=== PATIENT | female | born 1935 | race Caucasian/White ===

== ENCOUNTER 2016-08-19 15:02 | Outpatient (RCR) | payer MEDICARE ==
[~2016-08-19 15:02] MED LIST: ALDACTONE PO; AMLOPIDINE PO; ASPIRIN E.C. 8181 MG PO; CALCITRIOL PO; COLACE100 M1 PO; COUMADIN 22.5 MG/TAB PO; COUMADIN PO; FEROSUL325 M1 PO; LASIX 40MG TABL40 MG PO; METFORMIN PO; MIRALAX17 GM PO; NATURE'S BLEND500 M6 PO; POTASSIUM CHLO20 ME4 PO; PRAVACHOL 40MG40 MG PO; PROAIR RESPICL90 MCG IH; Patient's Own Medica PO; SYNTHROID112 MCG PO; VITAMIN C PUR1000 MG PO
== END 2016-11-17 | disposition home or self-care (01) ==
LOC: CARDREHAB 15:02
DX: Z48.812 Encounter for surgical aftercare following surgery on the circulatory system (principal); Z95.2 Presence of prosthetic heart valve

== ENCOUNTER 2016-11-18 08:00 | Outpatient (RCR) | payer MEDICARE ==
[2016-04-16 06:20] VITALS: BP 115/57
== END 2017-02-16 | disposition home or self-care (01) ==
LOC: CARDREHAB
DX: Z48.812 Encounter for surgical aftercare following surgery on the circulatory system (principal); Z95.2 Presence of prosthetic heart valve; Z79.52 Long term (current) use of systemic steroids

== ENCOUNTER 2017-02-17 08:00 | Outpatient (RCR) | payer MEDICARE ==
[2016-04-16 06:20] VITALS: BP 115/57
== END 2017-05-18 | disposition home or self-care (01) ==
LOC: CARDREHAB
DX: Z48.812 Encounter for surgical aftercare following surgery on the circulatory system (principal)

== ENCOUNTER 2017-05-19 09:00 | Outpatient (RCR) | payer MEDICARE ==
[2017-05-23] MEDS ORDERED: LEVOFLOXACIN500 M1 PO (11:07)
[2017-05-23] MEDS ORDERED: CALCITRIOL0.25 MCG PO (11:08)
[2017-05-23] MEDS ORDERED: LASIX40 M1 PO (11:09)
[2017-05-23] MEDS ORDERED: BISOPROLOL FM5 MG PO (11:09)
[2017-05-23] MEDS ORDERED: ATORVASTATIN CA10 MG PO (11:11)
[2017-06-03] MEDS ORDERED: TUMS ULTRA ST1000 MG PO (11:08)
[2017-06-30 11:32] VITALS: BP 148/70
== END 2017-08-19 | disposition home or self-care (01) ==
LOC: CARDREHAB
DX: Z48.812 Encounter for surgical aftercare following surgery on the circulatory system (principal); Z95.5 Presence of coronary angioplasty implant and graft

== ENCOUNTER 2017-05-22 10:04 | Outpatient (RCR) | payer MEDICARE ==
[~2017-05-22] VITALS: Ht 154.9 cm; Wt 70.9 kg
[2017-05-22 12:35] VITALS: BP 141/55
[2017-05-22 13:11] VITALS: BP 142/59
[2017-05-23 11:06] VITALS: BP 144/61
[2017-05-23] MEDS ORDERED: LEVOFLOXACIN500 M1 PO (11:07)
[2017-05-23] MEDS ORDERED: CALCITRIOL0.25 MCG PO (11:08)
[2017-05-23] MEDS ORDERED: BISOPROLOL FM5 MG PO (11:09)
[2017-05-23] MEDS ORDERED: LASIX40 M1 PO (11:09)
[2017-05-23] MEDS ORDERED: ATORVASTATIN CA10 MG PO (11:11)
[2017-05-23 11:47] VITALS: BP 140/56
[2017-05-24 11:02] VITALS: BP 151/65
[2017-05-24 12:11] VITALS: BP 145/63
[2017-05-25 11:05] VITALS: BP 143/56
[2017-05-25 12:14] VITALS: BP 140/56
[2017-05-26 11:30] VITALS: BP 146/64
[2017-05-26 12:30] VITALS: BP 148/59
[2017-05-27 11:25] VITALS: BP 126/51
[2017-05-27 11:46] VITALS: BP 132/49
[2017-05-28 09:00] VITALS: BP 160/59
[2017-05-28 09:40] VITALS: BP 135/52
[2017-05-29 11:23] VITALS: BP 122/48
[2017-05-29 11:53] VITALS: BP 131/54
[2017-05-30 11:17] VITALS: BP 125/60
[2017-05-30 11:49] VITALS: BP 127/51
[2017-05-31 11:00] VITALS: BP 122/61
[2017-05-31 11:43] VITALS: BP 130/50
[2017-06-01 11:16] VITALS: BP 112/53
[2017-06-01 11:54] VITALS: BP 138/58
[2017-06-02 11:25] VITALS: BP 130/55
[2017-06-02 11:45] VITALS: BP 138/62
[2017-06-03] MEDS ORDERED: TUMS ULTRA ST1000 MG PO (11:08)
[2017-06-03 11:14] VITALS: BP 125/61
[2017-06-03 11:48] VITALS: BP 118/59
[2017-06-04 11:13] VITALS: BP 137/57
[2017-06-05 11:03] VITALS: BP 143/66
[2017-06-05 11:33] VITALS: BP 150/70
[2017-06-06 11:09] VITALS: BP 136/61
[2017-06-07 10:58] VITALS: BP 135/66
[2017-06-07 11:41] VITALS: BP 130/56
[2017-06-08 11:00] VITALS: BP 156/68
[2017-06-08 11:45] VITALS: BP 165/68
[2017-06-09 11:38] VITALS: BP 157/65
[2017-06-09 11:46] VITALS: BP 137/65
[2017-06-10 10:58] VITALS: BP 147/61
[2017-06-11 11:29] VITALS: BP 134/70
[2017-06-12 11:08] VITALS: BP 152/68
[2017-06-12 11:38] VITALS: BP 138/54
[2017-06-13 11:05] VITALS: BP 145/69
[2017-06-14 11:11] VITALS: BP 159/66
[2017-06-15 11:00] VITALS: BP 138/69
[2017-06-15 11:35] VITALS: BP 155/69
[2017-06-16 09:11] VITALS: BP 151/60
[2017-06-16 10:15] VITALS: BP 137/51
[2017-06-17 11:05] VITALS: BP 135/60
[2017-06-17 11:44] VITALS: BP 131/55
[2017-06-18 09:05] VITALS: BP 142/55
[2017-06-18 09:50] VITALS: BP 149/59
[2017-06-19 11:25] VITALS: BP 159/68
[2017-06-19 11:53] VITALS: BP 147/66
[2017-06-20 11:27] VITALS: BP 144/66
[2017-06-20 12:00] VITALS: BP 148/64
[2017-06-21 10:56] VITALS: BP 159/63
[2017-06-21 11:32] VITALS: BP 142/66
[2017-06-22 11:00] VITALS: BP 147/68
[2017-06-22 11:40] VITALS: BP 133/64
[2017-06-23 11:33] VITALS: BP 153/65
[2017-06-24 11:00] VITALS: BP 144/71
[2017-06-24 11:36] VITALS: BP 137/61
[2017-06-25 10:56] VITALS: BP 146/60
[2017-06-25 11:34] VITALS: BP 151/64
[2017-06-26 11:11] VITALS: BP 137/54
[2017-06-26 11:45] VITALS: BP 135/63
[2017-06-27 11:11] VITALS: BP 117/73
[2017-06-27 11:46] VITALS: BP 162/72
[2017-06-28 11:47] VITALS: BP 130/91; BP 157/66
[2017-06-29 10:56] VITALS: BP 156/75
[2017-06-29 11:34] VITALS: BP 140/66
[2017-06-30 11:16] VITALS: BP 152/71
[2017-06-30 11:32] VITALS: BP 148/70
== END 2017-08-20 | disposition home or self-care (01) ==
LOC: AMSURD
DX: I33.0 Acute and subacute infective endocarditis (principal); B95.4 Other streptococcus as the cause of diseases classified elsewhere; Z45.2 Encounter for adjustment and management of vascular access device
CPT/HCPCS: J0696; J1580; J1644

== ENCOUNTER → 2017-05-24 | Outpatient (CLI) | payer MEDICARE ==
[2017-05-23 11:47] VITALS: BP 140/56
[~2017-05-24] MED LIST changes: +ATORVASTATIN CA10 MG PO; +BISOPROLOL FM5 MG PO; +CALCITRIOL0.25 MCG PO; +LASIX40 M1 PO; +LEVOFLOXACIN500 M1 PO; +TUMS ULTRA ST1000 MG PO
== END ==
LOC: LAB 10:58
DX: R78.81 Bacteremia (principal); A49.1 Streptococcal infection, unspecified site

== ENCOUNTER → 2017-05-27 | Outpatient (CLI) | payer MEDICARE ==
[2017-05-26 12:30] VITALS: BP 148/59
== END ==
LOC: LAB 11:09
DX: A49.1 Streptococcal infection, unspecified site (principal)

== ENCOUNTER → 2017-05-30 | Outpatient (CLI) | payer MEDICARE ==
[2017-05-30 11:17] VITALS: BP 125/60
== END ==
LOC: LAB 11:29
DX: A49.1 Streptococcal infection, unspecified site (principal)

== ENCOUNTER → 2017-05-31 | Outpatient (CLI) | payer MEDICARE ==
[2017-05-31 11:43] VITALS: BP 130/50
== END ==
LOC: LAB 11:55
DX: A49.1 Streptococcal infection, unspecified site (principal)

== ENCOUNTER → 2017-06-02 | Outpatient (CLI) | payer MEDICARE ==
[2017-06-01 11:54] VITALS: BP 138/58
== END ==
LOC: LAB 11:08
DX: Z51.81 Encounter for therapeutic drug level monitoring (principal); Z79.2 Long term (current) use of antibiotics; B95.4 Other streptococcus as the cause of diseases classified elsewhere

== ENCOUNTER → 2017-06-14 | Outpatient (CLI) | payer MEDICARE ==
[2017-06-14 11:11] VITALS: BP 159/66
== END ==
LOC: LAB 11:12
DX: A49.1 Streptococcal infection, unspecified site (principal)

== ENCOUNTER → 2017-06-21 | Outpatient (CLI) | payer MEDICARE ==
[2017-06-21 10:56] VITALS: BP 159/63
== END ==
LOC: LAB 11:23
DX: A49.1 Streptococcal infection, unspecified site (principal)

== ENCOUNTER → 2017-06-28 | Outpatient (CLI) | payer MEDICARE ==
[2017-06-28 11:47] VITALS: BP 157/66
== END ==
LOC: LAB 12:54
DX: A49.1 Streptococcal infection, unspecified site (principal)

== ENCOUNTER 2019-03-16 14:00 | Outpatient (RCR) | payer MEDICARE | END 2019-03-16 14:30 | disposition still patient (30) | LOC: PT 14:00 | DX: M54.32 Sciatica, left side (principal) ==

== ENCOUNTER → 2019-08-08 | Outpatient (CLI) | payer MEDICARE | LOC: RAD 09:47 | DX: Z13.820 Encounter for screening for osteoporosis (principal); E89.2 Postprocedural hypoparathyroidism ==

== ENCOUNTER 2024-01-22 11:41 | Emergency (ER) | payer MEDICARE ==
[~2024-01-22] VITALS: Ht 154.9 cm; Wt 62.2 kg
[~2024-01-22 11:41] MED LIST changes: +B-121000 MCG PO; -BISOPROLOL FM5 MG PO; +BISOPROLOL FUMA10 M1 PO; +CORDARONE200 MG/TAB PO; +LASIX20 M1 PO; +LOW DOSE ASPIRI81 M1 PO; +WARFARIN SODIUM3 MG PO; +ZESTRIL20 M1 PO; +ZESTRIL5 M1 PO
[2024-01-22] MEDS ORDERED: TIROSINT75 MC1 PO (11:52)
[2024-01-22] MEDS ORDERED: GLUCOPHAGE PO (11:53)
[2024-01-22 12:43] LABS: BASO # 0.01 K/mm3 (0.02-0.10); EOS % 3.8 % (1.0-5.0); HEMATOCRIT 37.9 % (37.0-47.0); LYMPH# 0.85 K/mm3 (1.50-4.00); MEAN CELL VOLUME 92 fl (78-100); MEAN CORPUSCULAR HEMOGLOBIN 29 pg (27-31); MEAN CORPUSCULAR HGB CONC 32 g/dL (33-37); MEAN PLATELET VOLUME 11.8 fl (7.4-10.4); MONO # 0.46 K/mm3 (0.20-0.80); NEU # 3.67 K/mm3 (1.40-6.50); PLATELET COUNT 179 K/mm3 (130-400); RED CELL DISTRIBUTION WIDTH 16.9 % (11.5-14.5); WHITE BLOOD COUNT 5.2 K/mm3 (4.8-10.8)
[2024-01-22 12:51] LABS: ALBUMIN 4.1 g/dL (3.4-4.8)
[2024-01-22 12:53] LABS: CALCIUM 11.4 mg/dL (8.3-10.5)
[2024-01-22 12:56] LABS: TOTAL BILIRUBIN 0.6 mg/dL (0.2-1.2)
[2024-01-22 13:17] LABS: URINE APPEARANCE CLEAR (CLEAR); URINE COLOR LIGHT YELLOW (YELLOW)
[2024-01-22 13:25] LABS: URINE BILIRUBIN NEGATIVE (NEGATIVE); URINE BLOOD NEGATIVE (NEGATIVE); URINE GLUCOSE NEGATIVE (NEGATIVE); URINE KETONE NEGATIVE (NEGATIVE); URINE LEUKOCYTE ESTERASE 1+ (NEGATIVE); URINE NITRATE NEGATIVE (NEGATIVE); URINE PROTEIN(semi-quant) NEGATIVE (NEGATIVE)
[2024-01-22] MEDS ORDERED: POTASSIUM CHLO10 ME7 PO (13:43)
[2024-01-22] MEDS ORDERED: CEPHALEXIN500 M1 PO (13:43)
[2024-01-22] MEDS ORDERED: cefTRIAXone 1 G in Water For Injection,Sterile 10 ML IV ONE (13:45)
[2024-01-22 14:44] VITALS: BP 174/78
== END 2024-01-22 13:55 | disposition home or self-care (01) ==
LOC: ED 11:41
PROVIDERS: Family Medicine
DX: N39.0 Urinary tract infection, site not specified (principal); E87.6 Hypokalemia; I48.91 Unspecified atrial fibrillation; Z79.01 Long term (current) use of anticoagulants
CPT/HCPCS: J0696

== ENCOUNTER → 2024-03-14 | Outpatient (CLI) | payer MEDICARE ==
[~2024-03-14] MED LIST changes: +CEPHALEXIN500 M1 PO; +GLUCOPHAGE PO; +POTASSIUM CHLO10 ME7 PO; +TIROSINT75 MC1 PO
[2024-03-14 10:36] LABS: URINE APPEARANCE CLOUDY (CLEAR); URINE BILIRUBIN NEGATIVE (NEGATIVE); URINE BLOOD NEGATIVE (NEGATIVE); URINE COLOR YELLOW (YELLOW); URINE GLUCOSE NEGATIVE (NEGATIVE); URINE KETONE NEGATIVE (NEGATIVE); URINE LEUKOCYTE ESTERASE 1+ (NEGATIVE); URINE NITRATE NEGATIVE (NEGATIVE); URINE PROTEIN(semi-quant) NEGATIVE (NEGATIVE); URINE WBC 16-30 /hpf (0-3)
== END ==
LOC: LAB 09:54
PROVIDERS: Family Medicine
DX: R30.0 Dysuria (principal)

== ENCOUNTER 2024-03-15 19:34 | Emergency (ER) | payer MEDICARE | END 2024-03-15 22:30 | disposition home or self-care (01) | LOC: ED 19:34 | DX: M25.552 Pain in left hip (principal); M54.50 Low back pain, unspecified; R07.81 Pleurodynia; W19.XXXA Unspecified fall, initial encounter ==

== ENCOUNTER → 2024-03-22 | Outpatient (CLI) | payer MEDICARE ==
[2024-05-14 12:18] LABS: PH-URINE 6.5 (5.0 - 8.0); URINE APPEARANCE CLEAR (CLEAR); URINE BILIRUBIN NEGATIVE (NEGATIVE); URINE BLOOD NEGATIVE (NEGATIVE); URINE COLOR YELLOW (YELLOW); URINE GLUCOSE NEGATIVE (NEGATIVE); URINE KETONE NEGATIVE (NEGATIVE); URINE LEUKOCYTE ESTERASE TRACE (NEGATIVE); URINE NITRATE NEGATIVE (NEGATIVE); URINE PROTEIN(semi-quant) 2+ (NEGATIVE)
[2024-05-14 12:19] LABS: URINE MUCUS PRESENT (NOT PRESENT)
== END ==
LOC: LAB 08:00
PROVIDERS: Family Medicine
DX: N39.0 Urinary tract infection, site not specified (principal)

== ENCOUNTER → 2024-03-24 | Outpatient (CLI) | payer MEDICARE ==
[2024-05-15 12:03] LABS: CALCIUM 9.9 mg/dL (8.3-10.5)
[2024-05-15 12:15] LABS: BASO # 0.03 K/mm3 (0.02-0.10); EOS # 0.13 K/mm3 (0.04-0.40); EOS % 2.7 % (1.0-5.0); HEMOGLOBIN 10.7 g/dL (12.5-16.0); LYMPH# 0.74 K/mm3 (1.50-4.00); MEAN CELL VOLUME 97 fl (78-100); MEAN CORPUSCULAR HEMOGLOBIN 31 pg (27-31); MEAN CORPUSCULAR HGB CONC 32 g/dL (33-37); MEAN PLATELET VOLUME 12.1 fl (7.4-10.4); NEU # 3.59 K/mm3 (1.40-6.50); PLATELET COUNT 211 K/mm3 (130-400); RED CELL DISTRIBUTION WIDTH 15.2 % (11.5-14.5); WHITE BLOOD COUNT 4.9 K/mm3 (4.8-10.8)
== END ==
LOC: LAB 12:02 → EDSTATUS 19:18
PROVIDERS: Family Medicine
DX: R53.1 Weakness (principal)

== ENCOUNTER 2024-06-18 10:07 | Emergency (ER) | payer MEDICARE ==
[~2024-06-18] VITALS: Ht 154.9 cm; Wt 64.9 kg
[2024-06-18 11:41] LABS: BASO # 0.02 K/mm3 (0.02-0.10); HEMATOCRIT 35.3 % (37.0-47.0); HEMOGLOBIN 10.9 g/dL (12.5-16.0); LYMPH# 0.72 K/mm3 (1.50-4.00); MEAN CELL VOLUME 93 fl (78-100); MEAN CORPUSCULAR HEMOGLOBIN 29 pg (27-31); MEAN CORPUSCULAR HGB CONC 31 g/dL (33-37); MEAN PLATELET VOLUME 12.9 fl (7.4-10.4); NEU # 3.58 K/mm3 (1.40-6.50); PLATELET COUNT 213 K/mm3 (130-400); RED BLOOD COUNT 3.79 M/mm3 (4.10-5.30); RED CELL DISTRIBUTION WIDTH 15.3 % (11.5-14.5); WHITE BLOOD COUNT 4.9 K/mm3 (4.8-10.8)
[2024-06-18 11:43] LABS: ALBUMIN 3.7 g/dL (3.4-4.8)
[2024-06-18 11:45] LABS: CALCIUM 8.8 mg/dL (8.3-10.5)
[2024-06-18 11:46] LABS: TOTAL PROTEIN 7.6 g/dL (6.2-8.1)
[2024-06-18 11:53] LABS: RSV RAPID MOLECULAR IN HOUSE NEGATIVE (NEGATIVE)
[2024-06-18] MEDS ORDERED: Furosemide 40 MG TAB PO ONE (12:15)
[2024-06-18] MEDS ORDERED: LASIX40 M1 PO (12:20)
[2024-06-18 12:33] VITALS: BP 134/69
== END 2024-06-18 12:42 | disposition home or self-care (01) ==
LOC: ED 10:07
PROVIDERS: Physician Assistant
DX: N18.9 Chronic kidney disease, unspecified (principal); N17.9 Acute kidney failure, unspecified; I50.9 Heart failure, unspecified; B34.9 Viral infection, unspecified; R05.9 Cough, unspecified

== ENCOUNTER 2024-07-04 17:19 | Emergency (ER) | payer MEDICARE ==
[~2024-07-04] VITALS: Ht 154.9 cm; Wt 62.2 kg
[2024-07-04] MEDS ORDERED: Amiodarone 150 MG/3 ML VIAL IV ONE (17:45)
[2024-07-04 17:55] LABS: BASO # 0.02 K/mm3 (0.02-0.10); EOS # 0.06 K/mm3 (0.04-0.40); HEMATOCRIT 36.6 % (37.0-47.0); HEMOGLOBIN 11.4 g/dL (12.5-16.0); MEAN CELL VOLUME 92 fl (78-100); MEAN CORPUSCULAR HEMOGLOBIN 29 pg (27-31); MEAN CORPUSCULAR HGB CONC 31 g/dL (33-37); MEAN PLATELET VOLUME 12.7 fl (7.4-10.4); MONO # 0.53 K/mm3 (0.20-0.80); NEU # 4.31 K/mm3 (1.40-6.50); PLATELET COUNT 211 K/mm3 (130-400); RED BLOOD COUNT 3.99 M/mm3 (4.10-5.30); RED CELL DISTRIBUTION WIDTH 15.8 % (11.5-14.5); WHITE BLOOD COUNT 5.8 K/mm3 (4.8-10.8)
[2024-07-04 19:10] VITALS: BP 105/78
[2024-07-04 20:04] LABS: ALBUMIN 3.5 g/dL (3.4-4.8); CALCIUM 9.1 mg/dL (8.3-10.5); MAGNESIUM 2.3 mg/dL (1.60-2.60); TOTAL BILIRUBIN 0.9 mg/dL (0.2-1.2); TOTAL PROTEIN 7.7 g/dL (6.2-8.1)
== END 2024-07-04 19:10 | disposition short-term general hospital (02) ==
LOC: ED 17:19
PROVIDERS: Physician Assistant
DX: I50.9 Heart failure, unspecified (principal); I48.91 Unspecified atrial fibrillation; R53.83 Other fatigue; R53.1 Weakness
CPT/HCPCS: J0282

== ENCOUNTER 2024-07-10 17:10 | Inpatient (IN) | payer MEDICARE ==
[~2024-07-10] VITALS: Ht 154.9 cm; Wt 57.8 kg
[2024-07-11] MEDS ORDERED: ACETAMINOPHEN325 M1 PO (14:00)
[2024-07-11] MEDS ORDERED: COLACE100 M1 PO (14:01)
[2024-07-11] MEDS ORDERED: AZO D-MANNOSE500 MG PO (14:01)
[2024-07-11] MEDS ORDERED: CALCITRIOL0.25 MCG PO (14:01)
[2024-07-11] MEDS ORDERED: LEVOTHYROXIN0.075 MG PO (14:02)
[2024-07-11] MEDS ORDERED: VITAMIN B12 1541 TAB PO (14:03)
[2024-07-11 14:30] VITALS: BP 113/68
[2024-07-11] MEDS ORDERED: Bisacodyl 5 MG TAB PO PRN (14:30)
[2024-07-11] MEDS ORDERED: Polyethylene Glycol 3350 Powder 17 GM PACKET PO PRN (14:30)
[2024-07-11] MEDS ORDERED: Famotidine 20 MG TAB PO PRN (14:45)
[2024-07-11] MEDS ORDERED: Acetaminophen 325 MG TAB PO PRN (15:00)
[2024-07-11] MEDS ORDERED: Docusate Sodium 100 MG CAP PO PRN (15:00)
[2024-07-11 15:39] LABS: ALBUMIN 2.7 g/dL (3.4-4.8)
[2024-07-11 15:40] LABS: CALCIUM 9.6 mg/dL (8.3-10.5)
[2024-07-11 15:41] LABS: TOTAL PROTEIN 6.2 g/dL (6.2-8.1)
[2024-07-11 15:43] LABS: TOTAL BILIRUBIN 1.3 mg/dL (0.2-1.2)
[2024-07-11 15:44] LABS: BASO # 0.03 K/mm3 (0.02-0.10); EOS # 0.15 K/mm3 (0.04-0.40); EOS % 1.8 % (1.0-5.0); LYMPH# 0.88 K/mm3 (1.50-4.00); MEAN CELL VOLUME 93 fl (78-100); MEAN CORPUSCULAR HEMOGLOBIN 28 pg (27-31); MEAN CORPUSCULAR HGB CONC 30 g/dL (33-37); MEAN PLATELET VOLUME 13.2 fl (7.4-10.4); MONO # 1.02 K/mm3 (0.20-0.80); NEU # 6.26 K/mm3 (1.40-6.50); RED CELL DISTRIBUTION WIDTH 16.7 % (11.5-14.5); WHITE BLOOD COUNT 8.4 K/mm3 (4.8-10.8)
[2024-07-11 16:09] LABS: PLATELET COUNT 123 K/mm3 (130-400); RED BLOOD COUNT 3.55 M/mm3 (4.10-5.30)
[2024-07-11 17:59] VITALS: BP 118/72
[2024-07-12 06:31] LABS: URINE APPEARANCE CLOUDY (CLEAR); URINE COLOR YELLOW (YELLOW)
[2024-07-12 06:32] VITALS: BP 131/78
[2024-07-12 06:32] LABS: URINE BILIRUBIN NEGATIVE (NEGATIVE); URINE BLOOD 2+ (NEGATIVE); URINE GLUCOSE NEGATIVE (NEGATIVE); URINE KETONE NEGATIVE (NEGATIVE); URINE LEUKOCYTE ESTERASE 3+ (NEGATIVE); URINE MUCUS PRESENT (NOT PRESENT); URINE NITRATE NEGATIVE (NEGATIVE); URINE PROTEIN(semi-quant) 2+ (NEGATIVE); URINE WBC >50 /hpf (0-3)
[2024-07-12 07:25] LABS: BASO # 0.03 K/mm3 (0.02-0.10); EOS # 0.06 K/mm3 (0.04-0.40); EOS % 0.7 % (1.0-5.0); HEMATOCRIT 33.8 % (37.0-47.0); HEMOGLOBIN 10.3 g/dL (12.5-16.0); LYMPH# 0.67 K/mm3 (1.50-4.00); MEAN CELL VOLUME 93 fl (78-100); MEAN CORPUSCULAR HEMOGLOBIN 28 pg (27-31); MEAN CORPUSCULAR HGB CONC 31 g/dL (33-37); MONO # 0.98 K/mm3 (0.20-0.80); NEU # 6.23 K/mm3 (1.40-6.50); RED CELL DISTRIBUTION WIDTH 16.9 % (11.5-14.5)
[2024-07-12 07:33] LABS: ALBUMIN 2.9 g/dL (3.4-4.8)
[2024-07-12 07:35] LABS: CALCIUM 9.6 mg/dL (8.3-10.5)
[2024-07-12 07:36] LABS: TOTAL PROTEIN 6.3 g/dL (6.2-8.1)
[2024-07-12 07:38] LABS: TOTAL BILIRUBIN 1.6 mg/dL (0.2-1.2)
[2024-07-12 08:00] LABS: PLATELET COUNT 105 K/mm3 (130-400); RED BLOOD COUNT 3.64 M/mm3 (4.10-5.30)
[2024-07-12] MEDS ORDERED: cefTRIAXone 1 G in Water For Injection,Sterile 10 ML IV SCH ×2 (08:30→13:15)
[2024-07-12] MEDS ORDERED: Amoxicillin/Clavulanate K+ 875/125 MG TAB PO SCH (08:31)
[2024-07-12] MEDS ORDERED: Bumetanide 1 MG TAB PO SCH (09:00)
[2024-07-12] MEDS ORDERED: Calcitriol 0.25 MCG CAP PO SCH (09:00)
[2024-07-12] MEDS ORDERED: D MANNOSE 500 MG PO SCH (09:00)
[2024-07-12] MEDS ORDERED: Amoxicillin/Clavulanate K+ 500/125 MG TAB PO SCH (09:30)
[2024-07-12 17:53] VITALS: BP 149/79
[2024-07-13 06:07] VITALS: BP 144/71
[2024-07-13 17:33] VITALS: BP 133/67
[2024-07-14 05:34] VITALS: BP 119/57
[2024-07-14 08:32] LABS: HEMATOCRIT 33.9 % (37.0-47.0); HEMOGLOBIN 10.1 g/dL (12.5-16.0); MEAN CELL VOLUME 94 fl (78-100); MEAN CORPUSCULAR HEMOGLOBIN 28 pg (27-31); MEAN CORPUSCULAR HGB CONC 30 g/dL (33-37); MEAN PLATELET VOLUME 13.8 fl (7.4-10.4); PLATELET COUNT 173 K/mm3 (130-400); RED BLOOD COUNT 3.59 M/mm3 (4.10-5.30); RED CELL DISTRIBUTION WIDTH 17.1 % (11.5-14.5); WHITE BLOOD COUNT 8.6 K/mm3 (4.8-10.8)
[2024-07-14 08:37] LABS: CALCIUM 10.1 mg/dL (8.3-10.5)
[2024-07-14 08:38] LABS: TOTAL PROTEIN 6.4 g/dL (6.2-8.1)
[2024-07-14 08:40] LABS: TOTAL BILIRUBIN 1.1 mg/dL (0.2-1.2)
[2024-07-14 09:12] LABS: LYMPHOCYTE 5 % (20-51); MONOCYTE 4 % (3-10); NEUTROPHILS 90 % (42-75)
[2024-07-14 09:13] LABS: POLYCHROMASIA 1+
[2024-07-14 09:14] LABS: OVALOCYTES 1+
[2024-07-14 18:00] VITALS: BP 146/67
[2024-07-15 06:11] VITALS: BP 161/73
[2024-07-15 18:02] VITALS: BP 151/75
[2024-07-16 06:21] VITALS: BP 126/62
[2024-07-16] MEDS ORDERED: MAGNESIUM HYDROXIDE PO PRN (14:00)
[2024-07-16 18:07] VITALS: BP 149/68
[2024-07-16 18:13] VITALS: BP 146/67
[2024-07-17 06:13] VITALS: BP 159/66
[2024-07-17 16:59] VITALS: BP 139/67
[2024-07-18 05:52] VITALS: BP 144/67
[2024-07-18 18:00] VITALS: BP 145/64
[2024-07-19 05:48] VITALS: BP 123/69
[2024-07-19 06:10] LABS: BASO # 0.04 K/mm3 (0.02-0.10); EOS # 0.17 K/mm3 (0.04-0.40); EOS % 2.5 % (1.0-5.0); HEMATOCRIT 30.2 % (37.0-47.0); HEMOGLOBIN 9.2 g/dL (12.5-16.0); LYMPH# 1.15 K/mm3 (1.50-4.00); MEAN CELL VOLUME 93 fl (78-100); MEAN CORPUSCULAR HEMOGLOBIN 28 pg (27-31); MEAN CORPUSCULAR HGB CONC 31 g/dL (33-37); MEAN PLATELET VOLUME 12.7 fl (7.4-10.4); MONO # 0.73 K/mm3 (0.20-0.80); NEU # 4.76 K/mm3 (1.40-6.50); PLATELET COUNT 172 K/mm3 (130-400); RED BLOOD COUNT 3.24 M/mm3 (4.10-5.30); RED CELL DISTRIBUTION WIDTH 17.5 % (11.5-14.5); WHITE BLOOD COUNT 6.9 K/mm3 (4.8-10.8)
[2024-07-19] MEDS ORDERED: Bisoprolol 5 MG TAB PO SCH (09:00)
[2024-07-19 17:43] VITALS: BP 136/65
[2024-07-20 05:35] VITALS: BP 156/68
[2024-07-20 17:09] VITALS: BP 145/69
[2024-07-21 05:11] VITALS: BP 134/59
[2024-07-21 07:05] LABS: ALBUMIN 3.1 g/dL (3.4-4.8)
[2024-07-21 07:07] LABS: CALCIUM 11.5 mg/dL (8.3-10.5)
[2024-07-21 07:08] LABS: TOTAL PROTEIN 6.9 g/dL (6.2-8.1)
[2024-07-21 07:10] LABS: TOTAL BILIRUBIN 1.1 mg/dL (0.2-1.2)
[2024-07-21 07:37] LABS: BASO # 0.05 K/mm3 (0.02-0.10); EOS # 0.24 K/mm3 (0.04-0.40); EOS % 3.2 % (1.0-5.0); HEMATOCRIT 31.8 % (37.0-47.0); HEMOGLOBIN 9.6 g/dL (12.5-16.0); LYMPH# 1.13 K/mm3 (1.50-4.00); MEAN CELL VOLUME 94 fl (78-100); MEAN CORPUSCULAR HEMOGLOBIN 28 pg (27-31); MEAN CORPUSCULAR HGB CONC 30 g/dL (33-37); MEAN PLATELET VOLUME 13.6 fl (7.4-10.4); NEU # 5.34 K/mm3 (1.40-6.50); PLATELET COUNT 197 K/mm3 (130-400); RED CELL DISTRIBUTION WIDTH 17.6 % (11.5-14.5); WHITE BLOOD COUNT 7.6 K/mm3 (4.8-10.8)
[2024-07-21 17:06] VITALS: BP 150/75
[2024-07-22 06:06] VITALS: BP 145/58
[2024-07-22 17:07] VITALS: BP 117/60
[2024-07-23 05:59] VITALS: BP 117/73
[2024-07-23 11:56] LABS: BASO # 0.04 K/mm3 (0.02-0.10); EOS # 0.14 K/mm3 (0.04-0.40); EOS % 2.4 % (1.0-5.0); HEMATOCRIT 33.5 % (37.0-47.0); HEMOGLOBIN 9.9 g/dL (12.5-16.0); LYMPH# 0.83 K/mm3 (1.50-4.00); MEAN CELL VOLUME 97 fl (78-100); MEAN CORPUSCULAR HEMOGLOBIN 29 pg (27-31); MEAN CORPUSCULAR HGB CONC 30 g/dL (33-37); MEAN PLATELET VOLUME 11.9 fl (7.4-10.4); MONO # 0.46 K/mm3 (0.20-0.80); NEU # 4.25 K/mm3 (1.40-6.50); PLATELET COUNT 242 K/mm3 (130-400); RED BLOOD COUNT 3.46 M/mm3 (4.10-5.30); RED CELL DISTRIBUTION WIDTH 18.3 % (11.5-14.5); WHITE BLOOD COUNT 5.7 K/mm3 (4.8-10.8)
[2024-07-23 12:04] LABS: ALBUMIN 3.3 g/dL (3.4-4.8)
[2024-07-23 12:05] LABS: CALCIUM 11.7 mg/dL (8.3-10.5)
[2024-07-23 12:07] LABS: TOTAL PROTEIN 7.4 g/dL (6.2-8.1)
[2024-07-23] MEDS ORDERED: 1/2 NS 1,000 ML IV SCH (13:30)
[2024-07-23 17:39] VITALS: BP 140/61
[2024-07-24 05:05] VITALS: BP 156/69
[2024-07-24 05:58] LABS: CALCIUM 10.9 mg/dL (8.3-10.5)
[2024-07-24 08:31] LABS: MAGNESIUM 2.08 mg/dL (1.60-2.60)
[2024-07-24] MEDS ORDERED: Bisoprolol 5 MG TAB PO SCH (09:00)
[2024-07-24 17:12] VITALS: BP 146/71
[2024-07-25 05:24] VITALS: BP 172/67
[2024-07-25 14:28] LABS: PH-URINE 8.5 (5.0 - 8.0); URINE APPEARANCE SLIGHTLY CLOUDY (CLEAR); URINE COLOR YELLOW (YELLOW); URINE GLUCOSE NEGATIVE (NEGATIVE); URINE KETONE NEGATIVE (NEGATIVE); URINE PROTEIN(semi-quant) 1+ (NEGATIVE)
[2024-07-25 14:29] LABS: URINE BILIRUBIN NEGATIVE (NEGATIVE); URINE BLOOD NEGATIVE (NEGATIVE); URINE LEUKOCYTE ESTERASE 1+ (NEGATIVE); URINE NITRATE NEGATIVE (NEGATIVE)
[2024-07-25 17:04] VITALS: BP 168/70
[2024-07-26 05:41] VITALS: BP 162/70
[2024-07-26 06:04] LABS: HEMATOCRIT 34.3 % (37.0-47.0); HEMOGLOBIN 10.5 g/dL (12.5-16.0); MEAN CELL VOLUME 95 fl (78-100); MEAN CORPUSCULAR HEMOGLOBIN 29 pg (27-31); MEAN CORPUSCULAR HGB CONC 31 g/dL (33-37); MEAN PLATELET VOLUME 12.9 fl (7.4-10.4); PLATELET COUNT 233 K/mm3 (130-400); WHITE BLOOD COUNT 8.9 K/mm3 (4.8-10.8)
[2024-07-26 06:12] LABS: ALBUMIN 3.3 g/dL (3.4-4.8)
[2024-07-26 06:15] LABS: TOTAL PROTEIN 7.4 g/dL (6.2-8.1)
[2024-07-26 06:17] LABS: TOTAL BILIRUBIN 1.7 mg/dL (0.2-1.2)
[2024-07-26 06:40] LABS: LYMPHOCYTE 4 % (20-51); MONOCYTE 3 % (3-10); NEUTROPHILS 93 % (42-75)
[2024-07-26 17:28] VITALS: BP 137/67
[2024-07-27 05:58] VITALS: BP 171/69
[2024-07-27 08:03] LABS: HEMATOCRIT 33.4 % (37.0-47.0); MEAN CELL VOLUME 98 fl (78-100); MEAN CORPUSCULAR HEMOGLOBIN 29 pg (27-31); MEAN CORPUSCULAR HGB CONC 30 g/dL (33-37); MEAN PLATELET VOLUME 12.9 fl (7.4-10.4); PLATELET COUNT 263 K/mm3 (130-400); RED BLOOD COUNT 3.42 M/mm3 (4.10-5.30); RED CELL DISTRIBUTION WIDTH 18.9 % (11.5-14.5); WHITE BLOOD COUNT 7.7 K/mm3 (4.8-10.8)
[2024-07-27] MEDS ORDERED: 1/2 NS & 20 mEq KCl 1,000 ML IV SCH (08:15)
[2024-07-27 08:16] LABS: ALBUMIN 3.4 g/dL (3.4-4.8)
[2024-07-27 08:19] LABS: TOTAL PROTEIN 7.8 g/dL (6.2-8.1)
[2024-07-27 08:20] LABS: TOTAL BILIRUBIN 1.6 mg/dL (0.2-1.2)
[2024-07-27 08:26] LABS: CALCIUM 12.7 mg/dL (8.3-10.5)
[2024-07-27 09:26] LABS: LYMPHOCYTE 7 % (20-51); MONOCYTE 8 % (3-10); NEUTROPHILS 85 % (42-75)
[2024-07-27] MEDS ORDERED: hydrALAZINE 20 MG/ML 1 ML VIAL IV PRN (10:15)
[2024-07-27 11:53] LABS: TROPONIN-I 0.044 ng/mL (0.00-0.033)
[2024-07-27 13:30] VITALS: BP 151/65
[2024-07-27 13:47] LABS: CALCIUM 11.8 mg/dL (8.3-10.5)
[2024-07-27 14:02] LABS: TROPONIN-I 0.047 ng/mL (0.00-0.033)
[2024-07-27] MEDS ORDERED: D5 1/4 NS 1,000 ML IV SCH (14:15)
[2024-07-27 18:03] VITALS: BP 169/73
[2024-07-27 18:33] LABS: BASO # 0.03 K/mm3 (0.02-0.10); EOS # 0.13 K/mm3 (0.04-0.40); EOS % 2.2 % (1.0-5.0); HEMATOCRIT 31.6 % (37.0-47.0); HEMOGLOBIN 9.5 g/dL (12.5-16.0); LYMPH# 0.62 K/mm3 (1.50-4.00); MEAN CELL VOLUME 96 fl (78-100); MEAN CORPUSCULAR HEMOGLOBIN 29 pg (27-31); MEAN CORPUSCULAR HGB CONC 30 g/dL (33-37); MEAN PLATELET VOLUME 13.1 fl (7.4-10.4); MONO # 0.43 K/mm3 (0.20-0.80); PLATELET COUNT 245 K/mm3 (130-400); RED CELL DISTRIBUTION WIDTH 19.2 % (11.5-14.5)
[2024-07-27 18:41] LABS: CALCIUM 11.4 mg/dL (8.3-10.5)
[2024-07-27 19:00] LABS: TROPONIN-I 0.044 ng/mL (0.00-0.033)
[2024-07-27 19:10] VITALS: BP 102/52
[2024-07-27] MEDS ORDERED: D5 1/2 NS & 20mEq KCl 1,000 ML IV SCH (19:15)
[2024-07-27 20:02] VITALS: BP 102/52
[2024-07-27 23:21] VITALS: BP 137/68
[2024-07-28 03:17] VITALS: BP 172/70
[2024-07-28 07:16] LABS: HEMATOCRIT 32.8 % (37.0-47.0); HEMOGLOBIN 9.7 g/dL (12.5-16.0); MEAN CELL VOLUME 98 fl (78-100); MEAN CORPUSCULAR HEMOGLOBIN 29 pg (27-31); MEAN CORPUSCULAR HGB CONC 30 g/dL (33-37); MEAN PLATELET VOLUME 13.1 fl (7.4-10.4); PLATELET COUNT 249 K/mm3 (130-400); RED BLOOD COUNT 3.34 M/mm3 (4.10-5.30); RED CELL DISTRIBUTION WIDTH 19.3 % (11.5-14.5); WHITE BLOOD COUNT 5.7 K/mm3 (4.8-10.8)
[2024-07-28 07:19] LABS: ALBUMIN 3.1 g/dL (3.4-4.8)
[2024-07-28 07:20] LABS: CALCIUM 11.2 mg/dL (8.3-10.5)
[2024-07-28 07:21] LABS: TOTAL PROTEIN 7.1 g/dL (6.2-8.1)
[2024-07-28 07:23] LABS: TOTAL BILIRUBIN 1.5 mg/dL (0.2-1.2)
[2024-07-28 07:54] VITALS: BP 165/68
[2024-07-28 08:34] LABS: LYMPHOCYTE 10 % (20-51); MONOCYTE 5 % (3-10); NEUTROPHILS 83 % (42-75)
[2024-07-28 08:35] LABS: HYPOCHROMIA 1+; MICROCYTOSIS 1+
[2024-07-28] MEDS ORDERED: D5W 1,000 ML IV SCH (09:00)
[2024-07-28] MEDS ORDERED: Heparin 5,000 UNITS/ML 1 ML VIAL SQ SCH (09:00)
[2024-07-28] MEDS ORDERED: Potassium Chloride 100 ML IV SCH (09:00)
[2024-07-28 10:56] VITALS: BP 177/80
== END 2024-07-28 13:43 | disposition home or self-care (01) | DRG 291 ==
LOC: MED/SURG 07-11 12:17
PROVIDERS: ADMIT Family Medicine
DX: I13.0 Hypertensive heart and chronic kidney disease with heart failure and stage 1 through stage 4 chronic kidney disease, or unspecified chronic kidney disease (principal); I50.33 Acute on chronic diastolic (congestive) heart failure; N17.9 Acute kidney failure, unspecified; N39.0 Urinary tract infection, site not specified; D63.1 Anemia in chronic kidney disease; N18.30 Chronic kidney disease, stage 3 unspecified; E11.22 Type 2 diabetes mellitus with diabetic chronic kidney disease; I48.0 Paroxysmal atrial fibrillation; I25.10 Atherosclerotic heart disease of native coronary artery without angina pectoris; Z66 Do not resuscitate; E03.9 Hypothyroidism, unspecified; L89.152 Pressure ulcer of sacral region, stage 2; R74.01 Elevation of levels of liver transaminase levels; Z79.890 Hormone replacement therapy; R53.81 Other malaise; Z95.2 Presence of prosthetic heart valve; Z86.73 Personal history of transient ischemic attack (TIA), and cerebral infarction without residual deficits; Z95.0 Presence of cardiac pacemaker
CPT/HCPCS: A6240; J0360; J0696; J1644; J1650; J3480; J7070

== ENCOUNTER 2024-07-28 12:10 | Inpatient (IN) | payer MEDICARE ==
[~2024-07-28] VITALS: Ht 154.9 cm; Wt 57.8 kg
[~2024-07-28 12:10] MED LIST changes: +ACETAMINOPHEN325 M1 PO; +AZO D-MANNOSE500 MG PO; +LEVOTHYROXIN0.075 MG PO; +VITAMIN B12 1541 TAB PO
[2024-07-28] MEDS ORDERED: Ondansetron 4 MG/2 ML VIAL IV PRN (12:45)
[2024-07-28] MEDS ORDERED: D5W 1,000 ML IV SCH (13:00)
[2024-07-28] MEDS ORDERED: hydrALAZINE 20 MG/ML 1 ML VIAL IV PRN (13:00)
[2024-07-28 15:13] VITALS: BP 162/78
[2024-07-28 15:44] LABS: CALCIUM 10.3 mg/dL (8.3-10.5)
[2024-07-28] MEDS ORDERED: cefTRIAXone 1 G in Water For Injection,Sterile 10 ML IV SCH (16:00)
[2024-07-28] MEDS ORDERED: D5 1/2 NS & 20mEq KCl 1,000 ML IV SCH (16:45)
[2024-07-28 19:51] VITALS: BP 113/55
[2024-07-28] MEDS ORDERED: Heparin 5,000 UNITS/ML 1 ML VIAL SQ SCH (21:00)
[2024-07-28 23:34] VITALS: BP 118/63
[2024-07-29] VITALS (8 sets, daily range): BP systolic 122–180; BP diastolic 65–84
--- NOTE | 2024-07-29 03:57 | NUR ---
PT BP AT 0300 WAS 180/84 AND WAS MEDICATED WITH PRN HYDRALAZYNE 10MG PER MAR, PTS BP WAS RECHECKED AFTER 30 MINS. PT BP CAME DOWN TO 137/71. PT VS ARE WNL.
[2024-07-29 07:30] LABS: BASO # 0.03 K/mm3 (0.02-0.10); EOS # 0.23 K/mm3 (0.04-0.40); EOS % 4.4 % (1.0-5.0); HEMATOCRIT 32.3 % (37.0-47.0); HEMOGLOBIN 9.9 g/dL (12.5-16.0); LYMPH# 0.61 K/mm3 (1.50-4.00); MEAN CELL VOLUME 96 fl (78-100); MEAN CORPUSCULAR HEMOGLOBIN 30 pg (27-31); MEAN CORPUSCULAR HGB CONC 31 g/dL (33-37); MEAN PLATELET VOLUME 13.3 fl (7.4-10.4); MONO # 0.52 K/mm3 (0.20-0.80); NEU # 3.81 K/mm3 (1.40-6.50); PLATELET COUNT 237 K/mm3 (130-400); RED BLOOD COUNT 3.36 M/mm3 (4.10-5.30); RED CELL DISTRIBUTION WIDTH 18.9 % (11.5-14.5); WHITE BLOOD COUNT 5.2 K/mm3 (4.8-10.8)
[2024-07-29 07:40] LABS: ALBUMIN 3.1 g/dL (3.4-4.8)
[2024-07-29 07:41] LABS: CALCIUM 10.3 mg/dL (8.3-10.5)
[2024-07-29 07:43] LABS: TOTAL PROTEIN 7.3 g/dL (6.2-8.1)
[2024-07-29 07:44] LABS: TOTAL BILIRUBIN 1.2 mg/dL (0.2-1.2)
--- NOTE | 2024-07-29 07:48 | NUR ---
harvey No notified this RN of swelling to l hand and rings cutting into skin. Pt reports that she doesnt want her rings taken off. This RN wraps hand with misael bandage and elevates hand at this time. This RN explains potential complications if swelling doesnt reduce and rings are not removed.
--- NOTE | 2024-07-29 08:30 | NUR ---
CHATA WRAP AND BOARD REMOVED FROM LUE ELBOW AREA. CHATA BANDAGE REOMOVED FROM HAND. EXTREMITY ELEVATED.
--- NOTE | 2024-07-29 08:50 | NUR ---
Pt sitting in bed. Noted wetness under patient, changed brief and chux, cleaned patient. Pt denies any pain currently. Call light within reach. Pt has a visiter sitting in recliner at this time.
--- NOTE | 2024-07-29 16:41 | NUR ---
PT SLEEPING WHEN THIS RN ENTERS THE ROOM. PT AWAKENS AND THEN BECOMES DROWSY. ASKED IF PATIENT IS COLD AND WANTS COVERED UP, RESPONDS YES. PT TUCKED IN. PT ENCOURAGED AGAIN TO NOT REMOVE MONITORING EQUIPMENT.
--- NOTE | 2024-07-29 18:03 | NUR ---
ERP AT BEDSIDE WITH PATIENT.
--- NOTE | 2024-07-29 18:32 | NUR ---
Pt sitting up in bed watching the Dream[employer] game with her at bedside.
--- NOTE | 2024-07-29 18:47 | NUR ---
REPORT TO JAMESON SANZ.
--- NOTE | 2024-07-29 19:17 | NUR ---
Report received from Mignon BARBA. Patient resting supine in bed. was in visiting and left for the evening. Patient restless and fiddling with TELE wires and taking off hospital gown. Continuous pulse ox in place. Alert to Self, first name only. Denies pain. Assessment completed. L hand swollen some, L heel boggy, attempt to elevate on pillow but patient not cooperative with leaving in place. Assessment completed. HS supplement provided and assisted by staff. Bed alarm on. Call light in reach.
--- NOTE | 2024-07-29 22:44 | NUR ---
B/P 177/72. IV hydralazine given by JAMESON.
--- NOTE | 2024-07-29 23:12 | NUR ---
Blood pressure recheck 122/67
[2024-07-30] VITALS (8 sets, daily range): BP systolic 126–175; BP diastolic 43–73
--- NOTE | 2024-07-30 03:18 | NUR ---
B/P 175/73. RN notified to give hydralazine. Repositioned. Awake, quiet, confused.
--- NOTE | 2024-07-30 04:04 | NUR ---
B/P 126/43 after hydralazine. Awake, taking off gown.
--- NOTE | 2024-07-30 05:45 | NUR ---
Remains awake but restless. Pulling at O2 sensor wire. PO Levothyroxine taken in applesauce. Drank 120 CC of mild thickened water with encouragement. Repositoned. New purwick. Had 400 ML of urinary output.
--- NOTE | 2024-07-30 06:38 | NUR ---
Report to Karlie BARBA.
--- NOTE | 2024-07-30 19:15 | NUR ---
Report received from Karlie RN. Patient rests supine in bed with eyes closed. Awakens briefly with verbal stimuli from this nurse but promptly goes back to sleep. Voice soft spoken with confused speech. Does not follow commands well due to lethargy. Assessment completed. TELE in place with SAO2 at 98% via continuous pulse ox. Staff in to reposition Q 2 hours with incont cares as needed. Bed alarm on. Call light in reach.
--- NOTE | 2024-07-30 19:49 | NUR ---
Daughter Keena in to visit, updated on patient condition, questions answered.
--- NOTE | 2024-07-30 19:55 | NUR ---
B/P 164. RN's notified of need for hydralazine IV.
--- NOTE | 2024-07-30 20:38 | NUR ---
Repeat B/P 131/60.
--- NOTE | 2024-07-30 21:40 | NUR ---
Repositioned with oral cares provided. Brief dry. Opens eyes on command but then closes. Follows commands with oral cares ie swishes water and spits out into basin. Tried providing drink of water but holds in her mouth then spit it out. Heels floated on pillow. Bed alarm on. Call light in reach.
[2024-07-31 03:42] VITALS: BP 129/56
--- NOTE | 2024-07-31 05:52 | NUR ---
Remains lethargic but reponsive to staff. Takes po Synthroid in applesauce and mild thick water. No choking or couging noted. Repositioned, incontinent of urine x2 this shift.
--- NOTE | 2024-07-31 06:55 | NUR ---
Report to Kirsty BARBA.
[2024-07-31 08:30] VITALS: BP 174/68
--- NOTE | 2024-07-31 11:55 | NUR ---
PATIENT RESTING IN BED UPON ENTERING ROOM. PATIENT OPENS EYES WHEN NAME IS CALLED THEN GOES RIGHT BACK SLEEP. SHE ONLY SAID "MARTINE" AND FOR HER BIRTHDAY SHE STATED "10[birth year] THEN FELL BACK ASLEEP. SHE WAS ABLE TO SQUEEZE HANDS WHEN ASKED, BUT DID IT WITH EYES CLOSED. SHE HAS AN IV PLACED IN HER RIGHT AC AND FLUSHED WITHOUT ISSUE. PATIENT'S HEELS WHERE SOFT, SO FEET ARE ELEVATED. PATIENT NOT AWAKE OR ALERT ENOUGH FOR ORAL MED THIS AM. STAFF WILL CONTINUE TO REPOSITION PATIENT ORDERED AND NEEDED, PROVIDE ORAL CARE AND EVELYN CARE NEEDED. STAFF WILL CONT TO MONITOR.
[2024-07-31 12:01] VITALS: BP 171/73
[2024-07-31] MEDS ORDERED: Morphine Oral Concentrate 20 MG/ML UD PO PRN (14:30)
[2024-07-31] MEDS ORDERED: Ondansetron 4 MG/2 ML VIAL IV PRN (14:30)
[2024-07-31] MEDS ORDERED: LORazepam 2 MG/ML VIAL IV PRN (14:30)
[2024-07-31] MEDS ORDERED: Scopolamine 1 MG Delivered 3-Day PATCH TD PRN (14:30)
--- NOTE | 2024-07-31 14:52 | NUR ---
Spoke with [facility]. They will accept Anisha back on Hospice. Spoke with Family. Yina daughter would like Anisha to stay here. Nadir is DPOA and would like her to be well taken care of. He initally wanted her to go back to [facility] near him. but now is in agreement to stay here with comfort care.
--- NOTE | 2024-07-31 14:58 | NUR ---
Marin Britton has been Contacted.
--- NOTE | 2024-07-31 17:13 | NUR ---
PATIENT IS NOW ON COMFORT CARE. TELE HAS BEEN REMOVED. IV STILL IN PLACE. PATIENT WANTED TO WALK. STAFF ASSISTED PATIENT AND SHE AMBULATED ABOUT 150FT WITH WALKER. FAMILY HAS BEEN WITH PATIENT MOST OF THE DAY.
--- NOTE | 2024-07-31 19:04 | NUR ---
RECEIVED REPORT FROM JAMESON GIRARD
--- NOTE | 2024-07-31 23:08 | NUR ---
PATIENT RESTING IN BED. SHE TAKES GOWN OFF CONSISANTLY, ROOM KEPT WARM. DOES NOT APPEAR TO HAVE PAIN OR DISCOMFORT. BED ALARM ON . CALL LIGHT IN REACH
--- NOTE | 2024-08-01 14:44 | NUR ---
PATIENT HAS BEEN IN BED WITH EYES CLOSED FOR THE MAJORITY OF THE MORNING. SHE DID EAT SOME BREAKFAST, BUT REFUSED LUNCH. HAS BEEN IN WITH HER MOST OF THE DAY. PATIENT WILL OPEN EYES WHEN NAME IS SAID. PATIENT WANTED TO GET UP EARLY AFTERNOON. SHE WENT TO RESTROOM, DRESSING ON COCCYX WAS CHANGED. PATIENT UP IN HER RECLINER WITH IN ROOM WITH HER. ORAL AND EVELYN CARE PERFORMED Q2HRS AND NEEDED. PATIENT IS REPOSITIONED EVERY 2HRS.
[2024-08-01] MEDS ORDERED: LORazepam 0.5 MG TABLET PO PRN (15:45)
--- NOTE | 2024-08-01 19:18 | NUR ---
Report received from Kirsty BARBA. Patient resting supine in bed with eyes closed. Opens eyes with verbal stimuli. No signs of pain or distress. Resting comfortably at this time. Bed alarm on. Call light in reach
--- NOTE | 2024-08-01 23:36 | NUR ---
Rests quietly with eyes closed. Respirations even and non-labored. No signs of pain/distress.
--- NOTE | 2024-08-02 05:28 | NUR ---
Rested well most of the shift. Did take off gown and pull out purewick this AM. Responds to verbal stimuli but keeps eyes closed. Staff in to provide cares and reposition for comfort.
--- NOTE | 2024-08-02 06:54 | NUR ---
Report to Mayur BARBA.
[2024-08-02 10:12] LABS: BASO # 0.03 K/mm3 (0.02-0.10); EOS # 0.07 K/mm3 (0.04-0.40); HEMATOCRIT 36.7 % (37.0-47.0); HEMOGLOBIN 10.8 g/dL (12.5-16.0); LYMPH# 0.78 K/mm3 (1.50-4.00); MEAN CELL VOLUME 97 fl (78-100); MEAN CORPUSCULAR HEMOGLOBIN 29 pg (27-31); MEAN CORPUSCULAR HGB CONC 29 g/dL (33-37); MEAN PLATELET VOLUME 12.8 fl (7.4-10.4); MONO # 0.55 K/mm3 (0.20-0.80); NEU # 5.59 K/mm3 (1.40-6.50); PLATELET COUNT 240 K/mm3 (130-400); RED BLOOD COUNT 3.77 M/mm3 (4.10-5.30); RED CELL DISTRIBUTION WIDTH 19.8 % (11.5-14.5); WHITE BLOOD COUNT 7.1 K/mm3 (4.8-10.8)
[2024-08-02 10:20] LABS: ALBUMIN 3.6 g/dL (3.4-4.8)
[2024-08-02 10:22] LABS: CALCIUM 10.8 mg/dL (8.3-10.5)
[2024-08-02 10:23] LABS: TOTAL PROTEIN 8.2 g/dL (6.2-8.1)
[2024-08-02 10:25] LABS: TOTAL BILIRUBIN 1.4 mg/dL (0.2-1.2)
--- NOTE | 2024-08-02 10:40 | NUR ---
NOTIFIED MILTON ROY OF CRITICAL CHLORIDE OF 126.
--- NOTE | 2024-08-02 17:15 | NUR ---
PT IS SITTING UP IN RECLINER. STAFF ANESTHETIST IS HELPING PATIENT WITH EATING. PT DENIES ANY NEEDS AT THIS TIME.
--- NOTE | 2024-08-02 18:36 | NUR ---
PTS DAUGHTER STAYED WITH PT FOR THE MAJORITY OF THE DAY. PT WENT OUTSIDE WITH AND VISITED HER DOG. PT HAS BEEN ALERT FOR THE WHOLE SHIFT. GAVE REPORT TO JAMESON SANZ.
--- NOTE | 2024-08-02 19:04 | NUR ---
Report received from Mayur RN. Patient rests supine in bed. Arouses and opens eyes briefly with verbal stimuli but promptly falls back to sleep. Denies pain when asked. No signs of pain/distress. Assessment completed. Continue on comfort care. Bed alarm on. Call light in reach.
--- NOTE | 2024-08-03 01:49 | NUR ---
Rests quietly, No signs of pain or distress. Repositoned for comfort.
--- NOTE | 2024-08-03 06:07 | NUR ---
Continues to rest comfortably. No urinary output this shift. Still reponsive to tactile and verbal stimuli. No signs of pain or distress.
--- NOTE | 2024-08-03 07:13 | NUR ---
Report to Fiorella BARBA.
--- NOTE | 2024-08-03 19:25 | NUR ---
Report received from Fiorella BARBA. Patient resting in recliner. Drowsy, responds to verbal stimuli. Denies pain when asked, Shows no signs of pain. Ambulated with 2:1 staff to BR. Voids dark yellow urine and passes large amount of gas. HUMAN RESOURCES HR REPRESENTATIVE gave bed-bath and assisted with HS cares. Patient brushed own teeth with set up and cueing. Ambulated back to bed. Positioned for comfort on L side. Falls asleep promptly. Assessment completed. Bed alarm on, call light in reach.
--- NOTE | 2024-08-04 05:16 | NUR ---
Status unchanged, Repositioned Q 2 hours. Ambulated with staff assist x2 to the BR to void. Remains on comfort cares. No signs of pain or distress. Bed alarm on. Call light in reach.
--- NOTE | 2024-08-04 07:06 | NUR ---
Report to Susana Walton RN
--- NOTE | 2024-08-04 09:12 | NUR ---
PT RESTING IN BED. PT IS AROUSABLE TO STIMULI BUT RESPONDS MINIMALLY. DOES NOT APPEAR TO BE IN ANY PAIN. WHEN ASKED IF SHE NEEDED ANYTHING SHE RESPONDED "NO".
--- NOTE | 2024-08-05 10:34 | NUR ---
PT RESTING WITH FAMILY AT BEDSIDE. PT RESPONSIVE BUT LETHARGIC.
--- NOTE | 2024-08-05 19:03 | NUR ---
REPORT GIVEN TO MADDY, RN
--- NOTE | 2024-08-06 08:17 | NUR ---
PT RESTING IN BED WITH 3 SIDE RAILS UP AND BED ALARM ON. PT IS LETHARGIC BUT RESPONSIVE. RESPONDS TO TOUCH AND WHEN ASKED IF SHE WANTED ANYTHING TO EAT FOR BREAKFAST SHE STATED "NO". DENIES PAIN, APPEARS TO BE RESTING COMFORTABLY.
--- NOTE | 2024-08-06 17:51 | NUR ---
PT BECOMING RESTLESS, TAKING OFF CLOTHES AND PULLING OFF COVERS. PT WAS ALSO HALLUCINATING BELIEVING TO SEE A FIRE OUTSIDE HER WINDOW. 0.5 MG ATIVAN ADMINISTERED.
--- NOTE | 2024-08-06 18:37 | NUR ---
REPORT GIVEN TO RYLAN SANZ
--- NOTE | 2024-08-06 19:00 | NUR ---
Report received from Susana BARBA. Patient resting on L side in bed. Drowsy but arouses to verbal stimuli. here and leaves for the evening. Shows no signs of pain. Staff in to repositon and provide cares Q2 hours and PRN. Assessment completed. Bed alarm on, call light in reach.
--- NOTE | 2024-08-06 23:54 | NUR ---
Awake and up to BR with assist. Staff states patient grimacing when getting legs OOB. Patient shakes head yes when asked if in pain. Roxanol given SL at this time.
--- NOTE | 2024-08-07 02:31 | NUR ---
Resting comfortably. Respirations even and non-labored, no signs of pain/distress.
--- NOTE | 2024-08-07 06:04 | NUR ---
Continues to rest quietly. Staff in to reposition and provide cares.
--- NOTE | 2024-08-07 06:58 | NUR ---
Report to Kirsty BARBA.
[2024-08-07] MEDS ORDERED: MORPHINE S100 MG/5 M PO (10:20)
[2024-08-07 10:48] VITALS: BP 171/73
--- NOTE | 2024-08-07 11:19 | NUR ---
PATIENT REMAINS ON COMFORT CARE. SHE IS SLEEPING BUT WILL OPEN EYE WHEN NAME IS SAID. SHE HAS BEEN RESTING IN BED COMFORTABLY. HAS BEEN IN AND OUT SEVERAL TIMES THIS SHIFT. HE WILL BE DRIVING THE PATIENT TO HOSPICE FACILITY. PATIENT IS ABLE TO AMBULATE WITH WALKER WITH ASSISTANCE. SHE DOES NOT APPEAR TO BE IN PAIN OR UNCOMFORTABLE. STAFF WILL ASSIST GATHERING UP CLOTHING AND PERSONAL BELINGINGS. DAUGHTER IS ALSO HERE TO HELP. PATIENT IS SCHEDULED TO BE DISCHARGED AROUND 1300.
== END 2024-08-07 12:55 | disposition hospice, inpatient (51) | DRG 948 ==
LOC: MED/SURG 12:10
PROVIDERS: Family Medicine; ADMIT Family Medicine
DX: R53.81 Other malaise (principal); I50.32 Chronic diastolic (congestive) heart failure; I13.0 Hypertensive heart and chronic kidney disease with heart failure and stage 1 through stage 4 chronic kidney disease, or unspecified chronic kidney disease; N39.0 Urinary tract infection, site not specified; N17.9 Acute kidney failure, unspecified; N18.30 Chronic kidney disease, stage 3 unspecified; I48.0 Paroxysmal atrial fibrillation; L89.152 Pressure ulcer of sacral region, stage 2; Z51.5 Encounter for palliative care; Z66 Do not resuscitate; E11.22 Type 2 diabetes mellitus with diabetic chronic kidney disease; E03.9 Hypothyroidism, unspecified; E87.6 Hypokalemia; D63.1 Anemia in chronic kidney disease; R41.82 Altered mental status, unspecified; R74.01 Elevation of levels of liver transaminase levels; E86.0 Dehydration; Z79.890 Hormone replacement therapy; Z95.0 Presence of cardiac pacemaker; Z95.2 Presence of prosthetic heart valve; Z86.73 Personal history of transient ischemic attack (TIA), and cerebral infarction without residual deficits; Z88.8 Allergy status to other drugs, medicaments and biological substances
CPT/HCPCS: J0360; J0696; J1644; J3480; J7070

== ENCOUNTER → 2024-08-13 | Outpatient (REF) | payer MEDICARE ==
[~2024-08-13] MED LIST changes: +MORPHINE S100 MG/5 M PO
[2024-08-13 14:53] LABS: URINE APPEARANCE CLOUDY (CLEAR); URINE COLOR YELLOW (YELLOW); URINE GLUCOSE NEGATIVE (NEGATIVE); URINE KETONE TRACE (NEGATIVE); URINE PROTEIN(semi-quant) 1+ (NEGATIVE)
[2024-08-13 14:54] LABS: URINE BILIRUBIN 1+ (NEGATIVE); URINE BLOOD NEGATIVE (NEGATIVE); URINE LEUKOCYTE ESTERASE 1+ (NEGATIVE); URINE NITRATE NEGATIVE (NEGATIVE); URINE WBC 16-30 /hpf (0-3)
== END ==
LOC: LAB 14:20
PROVIDERS: Family Medicine
DX: R45.1 Restlessness and agitation (principal); R41.82 Altered mental status, unspecified

== ENCOUNTER 2024-08-31 14:11 | Emergency (ER) | payer MEDICARE ==
[~2024-08-31] VITALS: Ht 154.9 cm; Wt 58.8 kg
[2024-08-31 14:15] VITALS: BP 136/64
== END 2024-08-31 16:05 | disposition home or self-care (01) ==
LOC: ED 14:11
DX: M25.511 Pain in right shoulder (principal); M25.512 Pain in left shoulder; M25.552 Pain in left hip; R29.6 Repeated falls; Z51.5 Encounter for palliative care

== ENCOUNTER → 2024-09-29 | Outpatient (REF) | payer MEDICARE ==
[2024-09-29 17:06] LABS: URINE APPEARANCE CLEAR (CLEAR); URINE BILIRUBIN NEGATIVE (NEGATIVE); URINE BLOOD NEGATIVE (NEGATIVE); URINE COLOR YELLOW (YELLOW); URINE GLUCOSE NEGATIVE (NEGATIVE); URINE KETONE NEGATIVE (NEGATIVE); URINE LEUKOCYTE ESTERASE NEGATIVE (NEGATIVE); URINE NITRATE NEGATIVE (NEGATIVE); URINE PROTEIN(semi-quant) NEGATIVE (NEGATIVE)
[2024-09-29 17:07] LABS: URINE WBC 0-1 /hpf (0-3)
== END ==
LOC: LAB 15:59
PROVIDERS: Family Medicine
DX: N39.0 Urinary tract infection, site not specified (principal)

== ENCOUNTER → 2024-10-02 | Outpatient (REF) | payer MEDICARE ==
[2024-10-02 12:05] LABS: BASO # 0.04 K/mm3 (0.02-0.10); EOS # 0.27 K/mm3 (0.04-0.40); EOS % 4.4 % (1.0-5.0); HEMATOCRIT 26.2 % (37.0-47.0); HEMOGLOBIN 8.2 g/dL (12.5-16.0); LYMPH# 0.66 K/mm3 (1.50-4.00); MEAN CELL VOLUME 99 fl (78-100); MEAN CORPUSCULAR HEMOGLOBIN 31 pg (27-31); MEAN CORPUSCULAR HGB CONC 31 g/dL (33-37); MEAN PLATELET VOLUME 11.9 fl (7.4-10.4); MONO # 0.37 K/mm3 (0.20-0.80); NEU # 4.76 K/mm3 (1.40-6.50); PLATELET COUNT 133 K/mm3 (130-400); RED BLOOD COUNT 2.64 M/mm3 (4.10-5.30); RED CELL DISTRIBUTION WIDTH 19.8 % (11.5-14.5); WHITE BLOOD COUNT 6.1 K/mm3 (4.8-10.8)
[2024-10-02 12:13] LABS: ALBUMIN 2.9 g/dL (3.4-4.8)
[2024-10-02 12:15] LABS: TOTAL PROTEIN 6.9 g/dL (6.2-8.1)
[2024-10-02 12:17] LABS: TOTAL BILIRUBIN 0.4 mg/dL (0.2-1.2)
[2024-10-02 12:36] LABS: CALCIUM 5.4 mg/dL (8.3-10.5)
== END ==
LOC: LAB 11:56
PROVIDERS: Nurse Practitioner
DX: R29.6 Repeated falls (principal)

== ENCOUNTER → 2024-10-20 | Outpatient (REF) | payer MEDICARE ==
[~2024-10-20] MED LIST changes: +ATIVAN PO; +BISACODYL10 M1 RC; +CALCIUM 500-VI1 EAC1 PO; +CRANBERRY200 MG PO; +FUROSEMIDE40 MG; +LEVOTHYROXINE100 MC1 PO; +MACROBID 1100 MG/CAP PO; +MASON NATURAL325 MG PO; +MORPHINE S20 MG/5 M1 PO; +NYSTATIN15 G1 TP; +VITAMIN B122500 MC2 PO
[2024-10-20 19:28] LABS: URINE APPEARANCE CLEAR (CLEAR); URINE BILIRUBIN NEGATIVE (NEGATIVE); URINE BLOOD NEGATIVE (NEGATIVE); URINE COLOR YELLOW (YELLOW); URINE GLUCOSE NEGATIVE (NEGATIVE); URINE KETONE NEGATIVE (NEGATIVE); URINE LEUKOCYTE ESTERASE TRACE (NEGATIVE); URINE NITRATE NEGATIVE (NEGATIVE); URINE PROTEIN(semi-quant) NEGATIVE (NEGATIVE)
== END ==
LOC: LAB 18:00
PROVIDERS: Family Medicine
DX: N39.0 Urinary tract infection, site not specified (principal)

== ENCOUNTER 2024-10-22 18:52 | Emergency (ER) | payer MEDICARE ==
[~2024-10-22 18:52] MED LIST changes: -ATIVAN PO; -BISACODYL10 M1 RC; -CALCIUM 500-VI1 EAC1 PO; -CRANBERRY200 MG PO; -FUROSEMIDE40 MG; -LEVOTHYROXINE100 MC1 PO; -MACROBID 1100 MG/CAP PO; -MASON NATURAL325 MG PO; -MORPHINE S20 MG/5 M1 PO; -NYSTATIN15 G1 TP; -VITAMIN B122500 MC2 PO
[2024-10-22] MEDS ORDERED: CRANBERRY200 MG PO (19:14)
[2024-10-22] MEDS ORDERED: MASON NATURAL325 MG PO (19:16)
[2024-10-22] MEDS ORDERED: CALCIUM 500-VI1 EAC1 PO (19:16)
[2024-10-22] MEDS ORDERED: MACROBID 1100 MG/CAP PO (19:17)
[2024-10-22] MEDS ORDERED: FUROSEMIDE40 MG (19:17)
[2024-10-22] MEDS ORDERED: LEVOTHYROXINE100 MC1 PO (19:17)
[2024-10-22] MEDS ORDERED: VITAMIN B122500 MC2 PO (19:19)
[2024-10-22] MEDS ORDERED: ACETAMINOPHEN325 M1 PO (19:20)
[2024-10-22] MEDS ORDERED: BISACODYL10 M1 RC (19:21)
[2024-10-22] MEDS ORDERED: ATIVAN PO (19:23)
[2024-10-22] MEDS ORDERED: MORPHINE S20 MG/5 M1 PO (19:24)
[2024-10-22] MEDS ORDERED: NYSTATIN15 G1 TP (19:25)
[2024-10-22 19:38] LABS: BASO # 0.05 K/mm3 (0.02-0.10); EOS # 0.23 K/mm3 (0.04-0.40); HEMATOCRIT 27.6 % (37.0-47.0); HEMOGLOBIN 8.5 g/dL (12.5-16.0); LYMPH# 0.73 K/mm3 (1.50-4.00); MEAN CELL VOLUME 102 fl (78-100); MEAN CORPUSCULAR HEMOGLOBIN 32 pg (27-31); MEAN CORPUSCULAR HGB CONC 31 g/dL (33-37); MEAN PLATELET VOLUME 11.5 fl (7.4-10.4); MONO # 0.55 K/mm3 (0.20-0.80); NEU # 4.16 K/mm3 (1.40-6.50); PLATELET COUNT 170 K/mm3 (130-400); RED CELL DISTRIBUTION WIDTH 17.2 % (11.5-14.5); WHITE BLOOD COUNT 5.7 K/mm3 (4.8-10.8)
[2024-10-22 19:45] LABS: ALBUMIN 3.5 g/dL (3.4-4.8)
[2024-10-22 19:48] LABS: TOTAL PROTEIN 8.1 g/dL (6.2-8.1)
[2024-10-22 19:50] LABS: TOTAL BILIRUBIN 0.5 mg/dL (0.2-1.2)
[2024-10-22 19:55] LABS: MAGNESIUM 1.6 mg/dL (1.60-2.60)
[2024-10-22 20:23] LABS: CALCIUM 5.5 mg/dL (8.3-10.5)
[2024-10-22 20:51] VITALS: BP 113/58
== END 2024-10-22 20:52 | disposition home or self-care (01) ==
LOC: ED 18:52
PROVIDERS: Physician Assistant
DX: E83.51 Hypocalcemia (principal); N18.4 Chronic kidney disease, stage 4 (severe); D63.1 Anemia in chronic kidney disease; Z95.0 Presence of cardiac pacemaker; Z95.9 Presence of cardiac and vascular implant and graft, unspecified

== ENCOUNTER → 2024-11-17 | Outpatient (REF) | payer MEDICARE ==
[~2024-11-17] MED LIST changes: +ATIVAN PO; +BISACODYL10 M1 RC; +CALCIUM 500-VI1 EAC1 PO; +CRANBERRY200 MG PO; +FUROSEMIDE40 MG; +LEVOTHYROXINE100 MC1 PO; +MACROBID 1100 MG/CAP PO; +MASON NATURAL325 MG PO; +MORPHINE S20 MG/5 M1 PO; +NYSTATIN15 G1 TP; +VITAMIN B122500 MC2 PO
== END ==
LOC: LAB 12:52
DX: R39.9 Unspecified symptoms and signs involving the genitourinary system (principal)

== ENCOUNTER → 2024-11-23 | Outpatient (REF) | payer MEDICARE ==
[~2024-11-23] MED LIST changes: +MUCUS RELIEF600 MG PO; +SLOW RELEASE I142 M1 PO; +VITAMIN C500 M6 PO
== END ==
LOC: LAB 14:37
DX: E83.51 Hypocalcemia (principal)

== ENCOUNTER 2024-11-25 11:11 | Emergency (ER) | payer MEDICARE ==
[~2024-11-25] VITALS: Wt 61.5 kg
[~2024-11-25 11:11] MED LIST changes: -SLOW RELEASE I142 M1 PO; -VITAMIN C500 M6 PO
[2024-11-25 11:56] LABS: BASO # 0.03 K/mm3 (0.02-0.10); EOS # 0.07 K/mm3 (0.04-0.40); EOS % 0.8 % (1.0-5.0); HEMATOCRIT 36.3 % (37.0-47.0); HEMOGLOBIN 10.6 g/dL (12.5-16.0); LYMPH# 0.84 K/mm3 (1.50-4.00); MEAN CELL VOLUME 106 fl (78-100); MEAN CORPUSCULAR HEMOGLOBIN 31 pg (27-31); MEAN CORPUSCULAR HGB CONC 29 g/dL (33-37); MEAN PLATELET VOLUME 12.9 fl (7.4-10.4); MONO # 0.77 K/mm3 (0.20-0.80); NEU # 7.21 K/mm3 (1.40-6.50); PLATELET COUNT 249 K/mm3 (130-400); RED BLOOD COUNT 3.44 M/mm3 (4.10-5.30); RED CELL DISTRIBUTION WIDTH 15.7 % (11.5-14.5); WHITE BLOOD COUNT 8.9 K/mm3 (4.8-10.8)
[2024-11-25] MEDS ORDERED: NS 1,000 ML IV SCH (12:00)
[2024-11-25 12:02] LABS: ALBUMIN 3.3 g/dL (3.4-4.8)
[2024-11-25 12:04] LABS: CALCIUM 8.3 mg/dL (8.3-10.5)
[2024-11-25 12:05] LABS: TOTAL PROTEIN 7.8 g/dL (6.2-8.1)
[2024-11-25 12:12] LABS: RSV RAPID MOLECULAR IN HOUSE NEGATIVE (NEGATIVE)
[2024-11-25] MEDS ORDERED: 1/2 NS & 20 mEq KCl 1,000 ML IV SCH (12:30)
[2024-11-25] MEDS ORDERED: Albuterol/Ipratropium 3 MG-0.5 MG/3 ML Neb Soln IH ONE (14:30)
[2024-11-25] MEDS ORDERED: VITAMIN C500 M6 PO (14:43)
[2024-11-25] MEDS ORDERED: SLOW RELEASE I142 M1 PO (14:47)
[2024-11-25 15:30] VITALS: BP 102/71
== END 2024-11-25 14:55 | disposition other institution (70) ==
LOC: ED 11:11
PROVIDERS: Family Medicine
DX: J10.1 Influenza due to other identified influenza virus with other respiratory manifestations (principal); E87.0 Hyperosmolality and hypernatremia; E86.0 Dehydration; E87.6 Hypokalemia; Z95.0 Presence of cardiac pacemaker; Z98.61 Coronary angioplasty status; Z95.4 Presence of other heart-valve replacement
CPT/HCPCS: J3480

== ENCOUNTER 2024-11-25 14:32 | Inpatient (IN) | payer MEDICARE ==
[~2024-11-25] VITALS: Ht 157.5 cm; Wt 58.5 kg
[2024-11-25] MEDS ORDERED: VITAMIN C500 M6 PO (14:43)
[2024-11-25] MEDS ORDERED: SLOW RELEASE I142 M1 PO (14:47)
[2024-11-25 14:54] VITALS: BP 105/70
[2024-11-25] MEDS ORDERED: Albuterol/Ipratropium 3 MG-0.5 MG/3 ML Neb Soln IH PRN (15:15)
[2024-11-25] MEDS ORDERED: Acetaminophen 325 MG TAB PO PRN (15:15)
[2024-11-25] MEDS ORDERED: 1/2 NS 1,000 ML IV SCH (18:15)
[2024-11-25 18:28] VITALS: BP 114/78
[2024-11-25 23:10] LABS: CALCIUM 7.5 mg/dL (8.3-10.5)
[2024-11-26 05:01] LABS: URINE APPEARANCE CLOUDY (CLEAR); URINE COLOR YELLOW (YELLOW)
[2024-11-26 05:02] LABS: PH-URINE 5.5 (5.0 - 8.0); URINE BILIRUBIN 1+ (NEGATIVE); URINE BLOOD NEGATIVE (NEGATIVE); URINE GLUCOSE NEGATIVE (NEGATIVE); URINE KETONE 1+ (NEGATIVE); URINE LEUKOCYTE ESTERASE 1+ (NEGATIVE); URINE NITRATE NEGATIVE (NEGATIVE); URINE PROTEIN(semi-quant) 2+ (NEGATIVE); URINE WBC 31-50 /hpf (0-3)
[2024-11-26 05:04] LABS: URINE MUCUS PRESENT (NOT PRESENT)
[2024-11-26] MEDS ORDERED: cefTRIAXone 1 G in Water For Injection,Sterile 10 ML IV SCH (05:15)
[2024-11-26 06:00] VITALS: BP 128/86
[2024-11-26 07:44] VITALS: BP 98/65
[2024-11-26] MEDS ORDERED: Calcitriol 0.25 MCG CAP PO SCH (09:00)
[2024-11-26 09:44] LABS: BASO # 0.02 K/mm3 (0.02-0.10); EOS # 0.12 K/mm3 (0.04-0.40); EOS % 1.6 % (1.0-5.0); HEMATOCRIT 34.3 % (37.0-47.0); HEMOGLOBIN 10.1 g/dL (12.5-16.0); LYMPH# 0.62 K/mm3 (1.50-4.00); MEAN CELL VOLUME 104 fl (78-100); MEAN CORPUSCULAR HEMOGLOBIN 31 pg (27-31); MEAN CORPUSCULAR HGB CONC 29 g/dL (33-37); MEAN PLATELET VOLUME 12.4 fl (7.4-10.4); MONO # 0.49 K/mm3 (0.20-0.80); NEU # 6.37 K/mm3 (1.40-6.50); PLATELET COUNT 205 K/mm3 (130-400); RED BLOOD COUNT 3.29 M/mm3 (4.10-5.30); RED CELL DISTRIBUTION WIDTH 15.7 % (11.5-14.5); WHITE BLOOD COUNT 7.6 K/mm3 (4.8-10.8)
[2024-11-26 09:52] LABS: ALBUMIN 2.7 g/dL (3.4-4.8)
[2024-11-26 09:53] LABS: CALCIUM 7.2 mg/dL (8.3-10.5)
[2024-11-26 09:54] LABS: TOTAL PROTEIN 6.4 g/dL (6.2-8.1)
[2024-11-26 09:56] LABS: TOTAL BILIRUBIN 0.8 mg/dL (0.2-1.2)
[2024-11-26] MEDS ORDERED: Doxycycline Monohydrate 100 MG CAP PO SCH (10:23)
[2024-11-26] MEDS ORDERED: Bumetanide 1 MG/4 ML VIAL IV ONE (10:30)
[2024-11-26] MEDS ORDERED: 1/2 NS & 20 mEq KCl 1,000 ML IV SCH (10:30)
[2024-11-26 10:33] VITALS: BP 132/80
[2024-11-26 14:12] VITALS: BP 129/76
[2024-11-26 14:44] LABS: CALCIUM 7.5 mg/dL (8.3-10.5)
[2024-11-26 18:00] VITALS: BP 130/86
[2024-11-26] MEDS ORDERED: Bisoprolol 5 MG TAB PO SCH (18:02)
[2024-11-26 21:34] VITALS: BP 119/77
[2024-11-27 07:24] VITALS: BP 127/82
[2024-11-27 10:25] LABS: ALBUMIN 2.7 g/dL (3.4-4.8)
[2024-11-27 10:27] LABS: CALCIUM 7.2 mg/dL (8.3-10.5)
[2024-11-27 10:28] LABS: TOTAL PROTEIN 6.5 g/dL (6.2-8.1)
[2024-11-27 10:30] LABS: TOTAL BILIRUBIN 0.9 mg/dL (0.2-1.2)
[2024-11-27] MEDS ORDERED: Bumetanide 1 MG/4 ML VIAL IV ONE (10:45)
[2024-11-27] MEDS ORDERED: Albumin Human 50 ML IV ONE (11:15)
[2024-11-27] MEDS ORDERED: 1/2 NS & 20 mEq KCl 1,000 ML IV SCH (11:15)
[2024-11-27 11:34] VITALS: BP 128/76
[2024-11-27 14:19] VITALS: BP 123/56
[2024-11-27 17:14] LABS: CALCIUM 6.9 mg/dL (8.3-10.5)
[2024-11-27 19:15] VITALS: BP 119/70
[2024-11-27 23:51] VITALS: BP 105/64
[2024-11-28 03:18] VITALS: BP 111/71
[2024-11-28 05:56] LABS: ALBUMIN 2.6 g/dL (3.4-4.8)
[2024-11-28 05:57] LABS: BASO # 0.04 K/mm3 (0.02-0.10); EOS # 0.21 K/mm3 (0.04-0.40); EOS % 2.2 % (1.0-5.0); HEMATOCRIT 38.7 % (37.0-47.0); HEMOGLOBIN 11.4 g/dL (12.5-16.0); LYMPH# 0.61 K/mm3 (1.50-4.00); MEAN CELL VOLUME 102 fl (78-100); MEAN CORPUSCULAR HEMOGLOBIN 30 pg (27-31); MEAN CORPUSCULAR HGB CONC 30 g/dL (33-37); MEAN PLATELET VOLUME 12.4 fl (7.4-10.4); MONO # 0.91 K/mm3 (0.20-0.80); NEU # 7.62 K/mm3 (1.40-6.50); PLATELET COUNT 231 K/mm3 (130-400); RED BLOOD COUNT 3.78 M/mm3 (4.10-5.30); RED CELL DISTRIBUTION WIDTH 15.3 % (11.5-14.5); WHITE BLOOD COUNT 9.4 K/mm3 (4.8-10.8)
[2024-11-28 05:58] LABS: CALCIUM 6.8 mg/dL (8.3-10.5)
[2024-11-28 05:59] LABS: TOTAL PROTEIN 6.3 g/dL (6.2-8.1)
[2024-11-28 06:01] LABS: TOTAL BILIRUBIN 0.8 mg/dL (0.2-1.2)
[2024-11-28 07:30] VITALS: BP 90/60
[2024-11-28] MEDS ORDERED: Potassium Chloride 100 ML IV SCH (08:30)
[2024-11-28 11:40] VITALS: BP 94/57
[2024-11-28 15:20] VITALS: BP 96/69
[2024-11-28 19:00] VITALS: BP 105/68
[2024-11-29 03:45] VITALS: BP 126/73
[2024-11-29 06:32] LABS: CALCIUM 6.8 mg/dL (8.3-10.5)
[2024-11-29 08:32] VITALS: BP 124/84
[2024-11-29 11:31] VITALS: BP 109/69
[2024-11-29 15:36] VITALS: BP 106/68
[2024-11-29 19:00] VITALS: BP 100/71
== END 2024-11-29 16:17 | disposition swing bed (61) | DRG 640 ==
LOC: MED/SURG 14:32
PROVIDERS: Family Medicine; Nurse Practitioner; ADMIT Family Medicine
DX: E87.0 Hyperosmolality and hypernatremia (principal); J10.00 Influenza due to other identified influenza virus with unspecified type of pneumonia; N39.0 Urinary tract infection, site not specified; I50.32 Chronic diastolic (congestive) heart failure; N17.9 Acute kidney failure, unspecified; E87.6 Hypokalemia; E86.0 Dehydration; I48.0 Paroxysmal atrial fibrillation; Z79.01 Long term (current) use of anticoagulants; N18.9 Chronic kidney disease, unspecified; Z95.2 Presence of prosthetic heart valve; Z95.0 Presence of cardiac pacemaker; Z66 Do not resuscitate; D63.1 Anemia in chronic kidney disease
CPT/HCPCS: J0696; J3480; P9047

== ENCOUNTER 2024-11-29 16:17 | Inpatient (IN) | payer MEDICARE ==
[~2024-11-29] VITALS: Ht 157.5 cm; Wt 54.9 kg
[~2024-11-29 16:17] MED LIST changes: +SLOW RELEASE I142 M1 PO; +VITAMIN C500 M6 PO
[2024-11-29] MEDS ORDERED: Acetaminophen 325 MG TAB PO PRN ×2 (19:15)
[2024-11-29] MEDS ORDERED: Morphine Oral Concentrate 20 MG/ML UD PO PRN (19:15)
[2024-11-29] MEDS ORDERED: Polyethylene Glycol 3350 Powder 17 GM PACKET PO PRN (19:15)
[2024-11-29] MEDS ORDERED: LORazepam 2 MG/ML VIAL IM PRN (19:15)
[2024-11-29] MEDS ORDERED: Nystatin 100,000 Units/GM Cream 15 GM TUBE TP PRN (19:15)
[2024-11-29] MEDS ORDERED: Docusate Sodium 100 MG CAP PO SCH (21:00)
[2024-11-29] MEDS ORDERED: Albuterol/Ipratropium 3 MG-0.5 MG/3 ML Neb Soln IH SCH (21:00)
--- NOTE | 2024-11-29 21:00 | NUR ---
Patient resting in bed awake. HS med reviewed and given in applesauce. Patient alert to self and but not place "[place]". Mouth care done following breathing treatment and mouth moisterizer applied. Pure wick intact. Has occasional moist non productive couph.
--- NOTE | 2024-11-30 04:58 | NUR ---
Patient has been dozing off and on through the night.
[2024-11-30] MEDS ORDERED: Doxycycline Monohydrate 100 MG CAP PO SCH (07:00)
[2024-11-30 07:10] VITALS: BP 135/77
[2024-11-30] MEDS ORDERED: Bisoprolol 5 MG TAB PO SCH (09:00)
[2024-11-30] MEDS ORDERED: Cyanocobalamin (Vit B-12) 1,000 MCG TAB PO SCH (09:00)
[2024-11-30] MEDS ORDERED: Calcitriol 0.25 MCG CAP PO SCH (09:00)
[2024-11-30] MEDS ORDERED: Nitrofurantoin (Mono/Macro) 100 MG CAPSULE PO SCH (09:00)
[2024-11-30] MEDS ORDERED: Polyethylene Glycol 3350 Powder 17 GM PACKET PO SCH (09:00)
[2024-11-30] MEDS ORDERED: Furosemide 40 MG TAB PO SCH (09:00)
[2024-11-30] MEDS ORDERED: Calcium Carb/Vit D3 500 mg-5 mcg(200 Units) TAB PO SCH (09:00)
--- NOTE | 2024-11-30 12:36 | NUR ---
PT ALERT BUT DISORIENTED, PT CANNOT RECALL DAY OF WEEK, MONTH, OR FULL NAME/DATE OF . PT DID REPORT SHE WAS IN THE HOSPITAL IN [place]. PT SITTING UP ON THE EDGE OF THE BED WITH GHISLAINE INMAN AT BEDSIDE. PT ASSESSED, SEE SKIN ASSESSMENT IN SHIFT REPORT. PT SAT ON THE EDGE OF THE BED FOR ROUGHLY FIVE MINUTES AND THEN TRIED TO LAY BACK WITHOUT CONTROL, HENNY ASSISTED HER BACK INTO A LAYING POSITION. PT NOW RESTING IN BED WITH CALL LIGHT IN REACH, NO FURTHER REQUESTS MADE
[2024-11-30 15:05] LABS: BASO # 0.03 K/mm3 (0.02-0.10); EOS # 0.11 K/mm3 (0.04-0.40); EOS % 1.8 % (1.0-5.0); HEMATOCRIT 37.7 % (37.0-47.0); HEMOGLOBIN 11.3 g/dL (12.5-16.0); LYMPH# 0.74 K/mm3 (1.50-4.00); MEAN CELL VOLUME 100 fl (78-100); MEAN CORPUSCULAR HEMOGLOBIN 30 pg (27-31); MEAN CORPUSCULAR HGB CONC 30 g/dL (33-37); MEAN PLATELET VOLUME 12.5 fl (7.4-10.4); MONO # 0.76 K/mm3 (0.20-0.80); PLATELET COUNT 192 K/mm3 (130-400); RED BLOOD COUNT 3.78 M/mm3 (4.10-5.30); RED CELL DISTRIBUTION WIDTH 15.5 % (11.5-14.5); WHITE BLOOD COUNT 6.2 K/mm3 (4.8-10.8)
[2024-11-30 16:10] LABS: CALCIUM 7.4 mg/dL (8.3-10.5)
[2024-11-30 16:11] LABS: TOTAL PROTEIN 7.1 g/dL (6.2-8.1)
--- NOTE | 2024-11-30 16:49 | NUR ---
PT RESTING IN HER CHAIR COVERED IN A SHEET, PT IS VERY TIRED AND FALLS ASLEEP SHORTLY AFTER WAKING HER UP. PT AGREEABLE TON BREATHING TREATMENT AT THIS TIME, MASK TREATMENT UTILIZED. PT NOW RESTING IN HER CHAIR WITH CALL LIGHT IN REACH AND BREATHING TREATMENT ON.
[2024-11-30 19:00] VITALS: BP 127/85
--- NOTE | 2024-11-30 19:30 | NUR ---
Patient sliding out of recliner and max 3 assist to assist up in recliner and max 2 to assist to bed. Patient alert to self only. Drowsy. Takes 2 meds whole in applesauce and sips of thickened applejuice. SCD's on barrier cream applied to reddened buttucks and new purewick applied. Mouth care provided.
--- NOTE | 2024-11-30 20:15 | NUR ---
Patient assisted to bed. Does HS care with set up help. Ontiveros care started when noticed ontiveros out with balloon inflated. Reviewed with patient will need to place larger ontiveros with 30ml balloon. Good miguel-care provided and 18french ontiveros cath inserted with immediate return of 400+ mls of clear yellow urine. Balloon inflated with 30mls sterile water. Bladder mostly drained when noted milky yellow urine proximal in ontiveros tubing, then clears. HS meds along with tylenol for vaginal soreness reviewed and given.
--- NOTE | 2024-12-01 03:30 | NUR ---
Patient awake in bed and states ouch when SCD's inflate. SCD's removed. Patient has covers off and gown partially off. Reapplied and warm blanket given. States yes to being cold. Rests with eyes closed shortly after repositioned up in bed and to left side.
[2024-12-01 07:20] VITALS: BP 104/75
--- NOTE | 2024-12-01 07:50 | NUR ---
ASSISTED TO CHAIR X2 STAFF. PT. ALERT THIS AM. ONLY ORIENTED TO PERSON. GRABS AT THINGS ON HER BEDSIDE TABLE. PUREWICK IN PLACE.
--- NOTE | 2024-12-01 14:27 | NUR ---
THIS NURSE AND PCT ARVIND ASSISTED PT TO COMMODE. PT VOIDED 300 ML IN COOMODE. THIS NURSE PROVIDED EVELYN CARE. CHANGED BREIF AND PURE WICK. PT IS RESTING IN RECLINER WITH HER CALL LIGHT.
--- NOTE | 2024-12-01 17:00 | NUR ---
PCT ARVIND REPORTED PT DIFFICULT TO WAKE. THIS NURSE AND JUN, RN VISITED PT. PTS DAUGHTER IN THE ROOM. PT RESPONSIVE TO STERNAL RUBBING. WHEN ASKED IF PT WANTED ANYTHING TO DRINK PT MOVED HER HEAD FROM SIDE TO SIDE. PRECIA OBTAINED VS: UNREMARKABLE. PTS DAUGHTER INQUIRED ABOUT DEHYDRATION AND HOW TO TELL IF PT IS DEHYDRATED. THIS NURSE EDUCATED PT ABOUT WATCHING FOR PTS OUT PUT AND LABS ARE THE GOLD STANDARD FOR DETECTING DEHYDRATION. THIS NURSE EXPLAINED MEDICAL STAFF HAVE BEEN RECORDING PTS INTAKE AND OUTPUT, OFFERED TO PROVIDE WARM OR COLD DRINKS AT A LATER TIME IF PT CHANGES HER MIND. PTS DAUGHTER VERBALIZED UNDERSTANDING.
[2024-12-01] MEDS ORDERED: Ascorbic Acid 500 MG TAB PO SCH (18:00)
--- NOTE | 2024-12-01 18:20 | NUR ---
THIS NURSE AND PCT ODILIA TURNED PT ONTO HER RIGHT SIDE.
[2024-12-01 19:05] VITALS: BP 94/57
[2024-12-02 07:33] VITALS: BP 116/70
--- NOTE | 2024-12-02 08:45 | NUR ---
Patient lying in bed, oriented to self only. Refused medications and difficult to swab mouth for comfort. Chapstick placed on lips for comfort. Intermittent Malgorzata Vega breathing. Lung sounds diminished. Pulses weak in all extrem. Saccral mottling and BLE mottling present. Patient grasping at the air with arms up. Opens eyes to name but cannot follow commands. Weak, wet cough present. No urine output from purewick. Patient attempting to undress self on/off. FLACC scale at a 2/10. Patient is demonstrating signs of end of life.
--- NOTE | 2024-12-02 18:06 | NUR ---
Patient more awake this morning around 10:30am but was very confused and not fully opening her eyes. She undressed after being redressed 3 times. She tried to remove her identification, allergy and DNR bracelet. She was anxious and fidgity. Each time she was calmed down and redressed and repositioned in bed. Around 1115 her daughter arrived and woke her. She was alert and oriented to self and others, not time or place though. She was more alert and oriented per daughter than she has been in a while. Son arrived around 1150 to visit as well. At lunch, daughter fed her 100% of meal. Aspiration precautions used and food pureed, liquids thickened. 1330 nebulizer of albuterol completed. Patient sleeping and son and daughter left. 1530 patient woke and unable to identify family in the room. Oriented only to self and confused. Daughter returned for dinner and wanted patient up in chair. Patient refused. This is the 3rd time she has refused to get up to chair today. She has been turned Q2H in bed and repositioned often. Patient refused to eat dinner. She has had 0ml output of urine from the purewick. Patient sleeping with mouth open.
--- NOTE | 2024-12-02 18:45 | NUR ---
Report given to JAMESON Marie.
[2024-12-02 19:23] VITALS: BP 105/68
--- NOTE | 2024-12-02 19:28 | NUR ---
THIS EVENING PCT CIRO Bowser TOOK PTS VS 105/68 97.0 AXILLARY, 120 HR, 94% RA, 16RR. MD CARTAGENA WAS NOTIFIED OF TS ELEVATED HR, NO NW ORDERS GIVEN AT THIS TIME. PT IS ASYMPTOMATIC, BUT CONTINUES TO BE RESTLESS IN BED, PT WAS PULLING OFF HER GOWN AND WHEN THIS RN ATTEMPTED TO REDRESS PT, PT STATED "I DONT WANT TO WEAR A GOWN RIGHT NOW" PT WAS LEFT IN BED UNDRESSES AT LOWEST POSITION ALARMED WITH CALL LIGHT IN REACH.
[2024-12-03 07:10] VITALS: BP 76/62
[2024-12-03] MEDS ORDERED: NS 1,000 ML IV SCH (08:15)
[2024-12-03 08:31] LABS: HEMATOCRIT 42.7 % (37.0-47.0); HEMOGLOBIN 11.7 g/dL (12.5-16.0); MEAN CORPUSCULAR HEMOGLOBIN 30 pg (27-31); MEAN CORPUSCULAR HGB CONC 27 g/dL (33-37); PLATELET COUNT 178 K/mm3 (130-400); RED BLOOD COUNT 3.88 M/mm3 (4.10-5.30); WHITE BLOOD COUNT 19.8 K/mm3 (4.8-10.8)
[2024-12-03 08:32] LABS: MEAN CELL VOLUME 110 fl (78-100)
[2024-12-03 08:45] LABS: BAND 39 % (0-10); LYMPHOCYTE 3 % (20-51); MONOCYTE 5 % (3-10); NEUTROPHILS 53 % (42-75)
--- NOTE | 2024-12-03 08:45 | NUR ---
Patient minimally responsive. Terminal secretions heard as patient breathes shallow breaths. Lungs with soft crackles throughout. Patient redressed with a gown (had been removing the gown through the night.) Unable to provide medications as patient would not open eyes nor able to sit up fully. MILTON Love notified of patient status and vitals. Patient tachycardic, low BP at 76/62 with manual BP cuff, oxygen at 81%, and HR 123, RR 28. Patient provided oxygen at 2L via NC. MILTON Love ordered chest x-ray and labs.
[2024-12-03 08:49] LABS: ALBUMIN 3.1 g/dL (3.4-4.8)
[2024-12-03 08:50] LABS: CALCIUM 7.8 mg/dL (8.3-10.5)
[2024-12-03 08:52] LABS: TOTAL PROTEIN 7.4 g/dL (6.2-8.1)
[2024-12-03 08:53] LABS: TOTAL BILIRUBIN 1.5 mg/dL (0.2-1.2)
--- NOTE | 2024-12-03 09:06 | NUR ---
BNP 2326 AND CO2 17 CRITICAL VALUES REPORTED TO CHI REYNOSO
[2024-12-03] MEDS ORDERED: Scopolamine 1 MG Delivered 3-Day PATCH TD ONE (10:00)
[2024-12-03] MEDS ORDERED: Atropine 1% Ophth Soln 2 ML BOTTLE SL PRN (16:45)
--- NOTE | 2024-12-03 17:11 | NUR ---
006 Bonnie, daughter, called and notified that her mom has had significant changes and it would be a good idea to come up to the hospital. Kate MIRELES talked to her upon arrival and it was decided to go to hospice. Many family members visiting throughout the day. Patient minimally responsive and will not open eyes most of the time. Comfort measures provided. Lots of terminal secretions and some pain. Scope patch placed, roxanol given, suction for secretions, atropine drops for secretions, repositioning, warm wash cloth to wash face and eyes, lotion applied to skin, and support offered to family. Heart rate tachycardic, respirations slow and fast and usually shallow throughout the day. She has had no output for 48 hours. IV discontinued this morning. Daughter and family seem to be accepting the status of [place]. Hospice to come and transfer, pending.
--- NOTE | 2024-12-03 18:36 | NUR ---
Report given to JAMESON Marie.
--- NOTE | 2024-12-03 19:11 | NUR ---
Pt was in bed asleep, family at bedside, staff spoke with family during the day about pts deterioration, family was agreeable to comfort care, and a hospice consult was started. hospice did not visit today, expected tomorrow. this RN spot checked pts o2 sats and where down to 73% w/o o2 as pt does not tolerate nc at this time. hr was 43 at this time, will contniue to monitor. pt was left in bed at lowest position alarmed, family educated for call light use. daughter Yina to stay overnight with pt.
--- NOTE | 2024-12-04 10:42 | NUR ---
THIS NURSE ASSESSED PT. PTS FAMILY IS IN THE ROOM. PT IS RESTING IN HOSPITAL BED. PT IS UNRESPONSIVE TO SOUND, AND TOUCH, GRIMACES IF IN PAIN. SKIN PTS FACE IS PALLOR, MUCOSA IS DRY, PTS FEET, LEGS AND SACRUM ARE SHOWING SIGNS OF REDUCED CIRCULATION/MOTTELING. PTS FAMILY DECLINES ROXANOL, OR LORAZEPAM WHEN OFFERED TO PT.
--- NOTE | 2024-12-04 17:59 | NUR ---
PTS FAMILY IS WITH PT. PT IS RESTING IN BED QUIETLY. PER FAMILY WISHES, NO TURNING THE PT. PT MOANS AND SHOWS PAIN WHEN TURNED. PTS FAMILY DECLINES ANY "HOSPICE MEDS" WHEN OFFERED FOR THE PT. (MORPHINE PO OR LORAZEMPAM) THIS NURSE APPLIED MOISTURIZER TO PTS MOUTH, APPLIED CHAPSTICK. PTS HR PRESENTED BRADYCARDIA AND TACHYCARDIA. PTS O2% SAT HAS REMAINED AT 90-91% WHEN CHECKED.
--- NOTE | 2024-12-05 07:37 | NUR ---
PATIENT'S DAUGHTER CALLED FOR ASSISTANCE TO ROOM SHE FEELS HER MOTHER HAS HAD A "CHANGE" IN STATUS. PT IS NOTED TO BE UNRESPONSIVE, MOUTH BREATHING, BUT DAUGHTER STATES THIS IS FIRST TIME PT'S EYES HAVE BEEN SLIGHTLY OPENED. PT APPEARS TO BE COMFORTABLE, PRN ROXANOL GIVEN.
--- NOTE | 2024-12-05 10:23 | NUR ---
[facility] called.
--- NOTE | 2024-12-05 10:37 | NUR ---
[facility] REPORTS THAT THE PATIENT IS OK TO GO TO THE HOME WHEN READY. PT IS NOT A FINISH MENDER CASE. JAMESON GAUTAM NOTIFIED. CURRENTLY AWAITING CALL BACK FROM [facility].
--- NOTE | 2024-12-05 10:38 | NUR ---
FAMILY NOTIFIED STAFF THAT SHE BELIEVED PATIENT WAS NO LONGER BREATHING. THIS RN AND MANUELA SARKAR APRN CONFIRMED PATIENT AT 0944. [facility] [employer] CALLED AT 0955, POTENTIAL FOR SKIN OR TISSUE DONATION. [facility] [employer] TO NOTIFY FAMILY. BODY NOT TO BE RELEASED TO HOME UNTIL IT IS KNOWN IF PATIENT IS DONOR OR NOT.
--- NOTE | 2024-12-05 10:46 | NUR ---
QUILT FOR [facility]AM[facility]I PLACED ONTO PATIENT. PTS AT BEDSIDE.
--- NOTE | 2024-12-05 10:58 | NUR ---
[facility] NOTIFIED OF PATIENT . THIS RN WILL CALL HOME BACK WHEN FAMILY IS READY FOR PATIENT TO BE PICKED UP.
--- NOTE | 2024-12-05 11:59 | NUR ---
BODY HAS BEEN CLEANED UP. ALL JEWELRY REMOVED AND GIVEN TO DAUGHTER, STEPHON. HOME NOTIFIED BODY IS READY TO BE RELEASED. DAUGHTER AND NOTIFIED.
--- NOTE | 2024-12-05 12:35 | NUR ---
HOME HERE TO TRANSPORT BODY, FAMILY LEAVING AT THIS TIME TO GO TO HOME.
== END 2024-12-05 12:34 | disposition expired | DRG 193 ==
LOC: MED/SURG 16:17
PROVIDERS: Family Medicine; Physician Assistant; ADMIT Family Medicine
DX: J10.1 Influenza due to other identified influenza virus with other respiratory manifestations (principal); I50.33 Acute on chronic diastolic (congestive) heart failure; E87.0 Hyperosmolality and hypernatremia; N17.9 Acute kidney failure, unspecified; N18.32 Chronic kidney disease, stage 3b; R13.10 Dysphagia, unspecified; I25.10 Atherosclerotic heart disease of native coronary artery without angina pectoris; D64.9 Anemia, unspecified; Z66 Do not resuscitate; Z51.5 Encounter for palliative care; E87.6 Hypokalemia; E87.8 Other disorders of electrolyte and fluid balance, not elsewhere classified; R00.0 Tachycardia, unspecified; E86.0 Dehydration; I48.0 Paroxysmal atrial fibrillation; E03.9 Hypothyroidism, unspecified; R53.81 Other malaise; Z79.890 Hormone replacement therapy; Z95.0 Presence of cardiac pacemaker; Z86.73 Personal history of transient ischemic attack (TIA), and cerebral infarction without residual deficits